=== PATIENT | female | born 1960 | race Caucasian/White ===

== ENCOUNTER 2021-05-05 12:06 | Inpatient (IN) ==
[2021-05-05] MEDS ORDERED: ASPIRIN CHEW 324 MG PO STA (12:16)
[2021-05-05] MEDS ORDERED: MIDAZOLAM HCL 1 MG/ML 2ML VIAL ONE ×3 (12:24→14:23)
[2021-05-05] MEDS ORDERED: niCARdipine HCL INJ 2.5 MG/ML 10 ML AMP ONE (12:24)
[2021-05-05] MEDS ORDERED: HEPARIN (PORCINE) 1000 UNIT/ML 10 ML (CATH LAB USE ONLY) ONE ×2 (12:24→13:51)
[2021-05-05] MEDS ORDERED: NITROGLYCERIN/D5W 100MCG/ML 20ML SYR ONE (12:25)
[2021-05-05] MEDS ORDERED: fentaNYL citrate 100 MCG/2 ML VIAL ONE ×2 (12:25→14:23)
--- NOTE | 2021-05-05 12:27 | Emergency Department Note ---
Impression & Plan Acute MS, inferior wall, COOPER (dyspnea on exertion), Abnormal cardiovascular stress test ED Provider Note NAME: ARANZA TURCIOS AGE: 60 SEX: F : 1960 ARRIVES VIA: Walk-In INFORMANT: Patient, ED PROVIDER(S): Piotr Roberts DO CHIEF COMPLAINT: shortness of breath HPI: the patient is a 60-year-old female who presented to emergency department for an evaluation of shortness of breath. The patient is a history of diabetes. The patient states that she has been having dyspnea on exertion for the last few months. She was followed by her primary care physician for the symptoms. She was scheduled for a stress test. She presented for the stress test today and had a very abnormal stress test which included ST segment elevation with provocation. She was asymptomatic at the time and at this time complains of no chest pain. Because of the abnormal stress test she was sent to the emergency department for further evaluation. At this time the patient denies having any chest pain. She denies having any nausea or vomiting. She has no abdominal pain. She denies having the lower extremity swelling. She states she did have knee surgery previously and after that was decompensated. She states she did lose some weight and was feeling better. She started getting worse with her symptoms and this is why she was sent for the stress test. She states she has noticed that her blood sugar has been elevated over the last few days. ROS: See above HPI for pertinent positives & negatives. A total of 10 systems reviewed and were otherwise negative. PAST MEDICAL HISTORY: See Below PAST SURGICAL HISTORY: See Below FAMILY HISTORY: See Below SOCIAL HISTORY: See Below HOME MEDICATIONS: See Below ALLERGIES: See Below VITALS: See Below PHYSICAL EXAMINATION: GENERAL: Patient is awake alert in no acute distress patient is resting comfortably and showing no signs of anxiety EYES: The conjunctivae are clear. The pupils are round and reactive. EARS, NOSE, MOUTH AND THROAT: The nose is without any evidence of any deformity. NECK: The neck is nontender and supple. RESPIRATORY: Normal respiratory effort is noted there is no evidence of wheezing rhonchi or rales CARDIOVASCULAR: Regular rate and rhythm noted there no murmurs rubs or gallops normal S1 normal S2. GASTROINTESTINAL: The abdomen is soft. Abdomen is nontender. MUSCULOSKELETAL/EXTREMITIES: There is no evidence of gross deformity full range of motion is noted in the hips and shoulders. SKIN: There is no obvious evidence of any rash. There are no petechiae, pallor or cyanosis noted. NEUROLOGIC: Patient is awake alert and oriented x3 MEDICAL DECISION MAKING: the patient is a 60-year-old female who presented to the emergency department for an evaluation of shortness of breath. The patient is a history of diabetes. The patient also has a history of hyperlipidemia. She presented to the emergency department after having a stress test as an outpatient showed significant ST segment abnormalities. The patient was asymptomatic upon arrival. Her EKG did show significant ST segment abnormalities however. The [facility] were aware that she was coming over. Given her EKG findings and the patient's risk factors as well as her abnormal stress test she was felt to be a candidate for cardiac catheterization and possible interventional therapy. The patient was made a heart alert. She was treated with aspirin in the emergency department. The rn patient services was made aware and evaluated at the bedside. The patient was agreeable with this plan. Triage Nursing notes reviewed. Prior medical records reviewed Vital Signs: reviewed and remarkable for elevated blood pressure. Differential diagnosis: Cardiac ischemia, aortic dissection, pulmonary embolism, pneumothorax, pneumonia, pericarditis, myocarditis, esophageal rupture, GERD, cholecystitis, pancreatitis, musculoskeletal, as well as other pathologies. ER treatment provided: See below Diagnostics interpreted by me: ECG: EKG was obtained in the emergency department. My interpretation is sinus bradycardia 59 bpm. There were acute ST segment elevation as noted in the inferior leads with ST segment depression and the high lateral leads consistent with acute inferior wall MS with reciprocal changes. No previous duration was available. Cardiac Monitoring: An order was placed for continuous cardiac monitoring. The monitor shows a rate of 60 bpm with sinus rhythm. Laboratory studies: As stated above and show below. Imaging studies: See below Consultation(s): I discussed this case with Dr. Brewer who was expecting the patient and recommends that we make the patient a heart alert. Past Med/Surg History Medical History HAL (generalized anxiety disorder) Hypertension Insulin dependent diabetes mellitus Mixed hyperlipidemia Surgical History History of right knee joint replacement History of tonsillectomy Social History (Updated 05/05/21 @ 18:30 by Margarita Pagan PA-C) Smoking Status: Former smoker Smoking End Date: 2005; Hx Alcohol Use: Yes Alcohol type: hard liquor Alcohol Intake Frequency: 2-4 x/Month Hx Substance Use: No Preferred Language: Sinhala Communication Ability: Effective Beliefs That Will Affect Care: None Current Living Situation: Family Other Information That Helps Us Care for You: No Feels Safe at Home: Yes Safety Concerns: Feels Safe At This Time Assistive Devices: None Allergies Allergies Allergy/AdvReac Type Severity Reaction Status Date / Time No Known Allergies Allergy Unverified 05/05/21 12:42 Home Meds Home Medications Medication Instructions Recorded Confirmed citalopram 20 mg tablet 20 mg PO DAILY 05/05/21 05/05/21 diclofenac sodium 75 mg 75 mg PO BID 05/05/21 05/05/21 tablet,delayed release empagliflozin 25 mg tablet 25 mg PO DAILY 05/05/21 05/05/21 (Jardiance) ezetimibe 10 mg tablet 10 mg PO DAILY 05/05/21 05/05/21 gabapentin 800 mg tablet 800 mg PO TID 05/05/21 05/05/21 insulin glargine 100 unit/mL (3 28 unit SUBCUT HS 05/05/21 05/05/21 mL) subcutaneous pen (Lantus Solostar U-100 Insulin) lisinopril 40 mg tablet 40 mg PO DAILY 05/05/21 05/05/21 multivitamin 1 tab PO DAILY 05/05/21 05/05/21 semaglutide (Ozempic) 0.5 mg SUBCUT FREGOSO@0900 05/05/21 05/05/21 vitamin B complex 1 tab PO DAILY 05/05/21 05/05/21 Results & Data (ED) Vital Signs Vital Signs - 24 hr 05/05/21 12:08 05/05/21 12:20 05/05/21 12:28 Temperature 36 C L Temperature Source Temporal Artery Scan Pulse Rate 68 68 Pulse Rate [Right Finger] 68 Respiratory Rate 18 20 20 Respiratory Effort / Characteristics Non-Labored Non-Labored Respiratory Depth Normal Normal Blood Pressure 168/82 H Blood Pressure [Right Arm] 158/92 H Blood Pressure Mean 110 Blood Pressure Mean [Right Arm] 114 Pulse Oximetry 98 97 97 Oxygen Delivery Method Room Air Room Air Room Air Sepsis Recent Fever Within 48 Hours No Sepsis New/Unexplained Change in Mental Status No Sepsis Action Taken by Nursing No Action Required Home Medications Current Medication List: was personally reviewed by me Laboratory Data Attestation: I reviewed the patient's lab results. Result diagrams: 05/06/21 03:38 05/06/21 03:38 Lab Results 05/05/21 05/05/21 05/05/21 Range/Units 12:25 12:25 12:26 WBC 9.57 (4.8-10.8) K/uL RBC 3.92 L (4.2-5.4) M/uL Hgb 11.6 L (12.0-16.0) g/dL Hct 35.5 L (37-47) % MCV 90.6 (80-100) fL MCH 29.6 (25-34) pg MCHC 32.7 (32-36) g/dL RDW Std Deviation 42.6 (36.4-46.3) fL RDW Coeff of Navneet 12.9 (11.5-14.5) % Plt Count 382 (130-400) K/uL MPV 9.4 (7.4-10.4) fL Immature Gran % (Auto) 0.4 % Neut % (Auto) 61.4 % Lymph % (Auto) 28.3 % Hooker % (Auto) 4.4 % Eos % (Auto) 4.9 % Baso % (Auto) 0.6 % Neut # (Auto) 5.87 (1.4-6.5) K/uL Lymph # (Auto) 2.71 (1.2-3.4) K/uL Hooker # (Auto) 0.42 (0.11-0.59) K/uL Eos # (Auto) 0.47 (0-0.5) K/uL Baso # (Auto) 0.06 (0-0.2) K/uL Immature Gran # (Auto) 0.04 H (0.00-0.02) K/uL PT (9.0-12.0) Seconds INR (0.9-1.1) APTT (21.0-31.0) Seconds PTT Ratio Sodium (136-145) mmol/L Potassium (3.5-5.1) mmol/L Chloride (98-107) mmol/L Carbon Dioxide (21-32) mmol/L Anion Gap (3-11) BUN (7-18) mg/dl Creatinine (0.6-1.2) mg/dl Est Cr Clr Drug Dosing ml/min Est GFR ( Amer) ml/min Est GFR (Non-Af Amer) ml/min BUN/Creatinine Ratio (10-20) Glucose (70-99) mg/dl Calcium (8.5-10.1) mg/dl Total Bilirubin (0.2-1) mg/dl AST (15-37) U/L ALT (12-78) U/L Alkaline Phosphatase (45-117) U/L Troponin I (0-0.045) ng/ml Total Protein (6.4-8.2) gm/dl Albumin (3.4-5.0) gm/dl Globulin (2.5-4.0) gm/dl Albumin/Globulin Ratio (0.9-2) Lipase (73-393) U/L COVID-19 Eval Order Covid19 at [facility] SARS-CoV-2 (PCR) NEGATIVE (Negative) 05/05/21 05/05/21 Range/Units 12:26 12:26 WBC (4.8-10.8) K/uL RBC (4.2-5.4) M/uL Hgb (12.0-16.0) g/dL Hct (37-47) % MCV (80-100) fL MCH (25-34) pg MCHC (32-36) g/dL RDW Std Deviation (36.4-46.3) fL RDW Coeff of Navneet (11.5-14.5) % Plt Count (130-400) K/uL MPV (7.4-10.4) fL Immature Gran % (Auto) % Neut % (Auto) % Lymph % (Auto) % Hooker % (Auto) % Eos % (Auto) % Baso % (Auto) % Neut # (Auto) (1.4-6.5) K/uL Lymph # (Auto) (1.2-3.4) K/uL Hooker # (Auto) (0.11-0.59) K/uL Eos # (Auto) (0-0.5) K/uL Baso # (Auto) (0-0.2) K/uL Immature Gran # (Auto) (0.00-0.02) K/uL PT 9.6 (9.0-12.0) Seconds INR 0.9 (0.9-1.1) APTT 25.4 (21.0-31.0) Seconds PTT Ratio 1.0 Sodium 140 (136-145) mmol/L Potassium 3.9 (3.5-5.1) mmol/L Chloride 109 H (98-107) mmol/L Carbon Dioxide 25 (21-32) mmol/L Anion Gap 6.0 (3-11) BUN 27 H (7-18) mg/dl Creatinine 1.21 H (0.6-1.2) mg/dl Est Cr Clr Drug Dosing 67.0 ml/min Est GFR ( Amer) 55.5 ml/min Est GFR (Non-Af Amer) 47.9 ml/min BUN/Creatinine Ratio 22.0 H (10-20) Glucose 100 H (70-99) mg/dl Calcium 9.3 (8.5-10.1) mg/dl Total Bilirubin 0.4 (0.2-1) mg/dl AST 14 L (15-37) U/L ALT 20 (12-78) U/L Alkaline Phosphatase 87 (45-117) U/L Troponin I < 0.015 (0-0.045) ng/ml Total Protein 7.1 (6.4-8.2) gm/dl Albumin 3.4 (3.4-5.0) gm/dl Globulin 3.7 (2.5-4.0) gm/dl Albumin/Globulin Ratio 0.9 (0.9-2) Lipase 410 H (73-393) U/L COVID-19 Eval Order SARS-CoV-2 (PCR) (Negative) Administered Medications Aspirin (Aspirin 81 Mg Ectab) 81 mg PO QAM [facility] Stop: 06/05/21 08:59 Last Admin: 05/05/21 18:15 Dose: 81 mg Documented by: [id number] Citalopram Hydrobromide (Citalopram 20 Mg Tab) 20 mg PO DAILY [facility] Stop: 06/05/21 08:59 Last Admin: 05/06/21 08:13 Dose: 20 mg Documented by: [id number] Ezetimibe (Ezetimibe 10 Mg Tablet) 10 mg PO QAM [facility] Stop: 06/05/21 08:59 Last Admin: 05/06/21 08:13 Dose: 10 mg Documented by: [id number] Insulin Aspart (Insulin Aspart 100 Units/Ml 3 Ml Pen) 0 units SC ACHS LIGIA; P rotocol Stop: 06/04/21 20:59 Last Admin: 05/06/21 08:15 Dose: 4 units Documented by: [id number] Cosigned by: [id number] Admin: 05/05/21 20:22 Dose: 1 units Documented by: [id number] Cosigned by: [id number] Insulin Glargine (Insulin Glargine Solostar 100 Units/Ml 3 Ml Pen) 0 units SC HS LIGIA; Protocol Stop: 06/04/21 20:59 Last Admin: 05/05/21 20:21 Dose: 20 units Documented by: [id number] Cosigned by: [id number] Nitroglycerin (Nitroglycerin 2% Ointment 30gm Tube) 0.5 inch EXT Q6H LIGIA Stop: 06/04/21 18:29 Last Admin: 05/06/21 04:59 Dose: Not Given Documented by: [id number] Admin: 05/05/21 23:34 Dose: Not Given Documented by: [id number] Admin: 05/05/21 18:19 Dose: 0.5 inch Documented by: [id number] Rosuvastatin Calcium (Rosuvastatin Calcium 20 Mg Tab) 20 mg PO QAM [facility] Stop: 06/04/21 17:29 Last Admin: 05/06/21 08:13 Dose: 20 mg Documented by: [id number] Admin: 05/05/21 18:16 Dose: 20 mg Documented by: [id number] Discontinued Medications Acetaminophen (Acetaminophen 500 Mg Tab) 1,000 mg PO ONE ONE Stop: 05/05/21 19:36 Last Admin: 05/05/21 19:48 Dose: 1,000 mg Documented by: [id number] Aspirin (Aspirin Chew 324 Mg) 324 mg PO NOW STA Stop: 05/05/21 12:17 Last Admin: 05/05/21 12:25 Dose: 324 mg Documented by: [id number] Eptifibatide (Eptifibatide 2 Mg/Ml 10 Ml Vial (Air Export Agent Use Only)) Confirm Administered Dose 40 mg IV .STK-MED ONE Stop: 05/05/21 15:08 Last Admin: 05/05/21 15:15 Dose: 40 mg Documented by: [id number] Eptifibatide (Eptifibatide 0.75 Mg/Ml 75mg Vial (Air Export Agent Use Only)) Confirm Administered Dose 75 mg .ROUTE .STK-MED ONE Stop: 05/05/21 15:08 Last Admin: 05/05/21 15:15 Dose: 75 mg Documented by: [id number] Eptifibatide (Eptifibatide 2 Mg/Ml 10 Ml Vial (Air Export Agent Use Only)) Confirm Admi nistered Dose 20 mg IV .STK-MED ONE Stop: 05/05/21 15:17 Last Admin: 05/05/21 16:52 Dose: Not Given Documented by: [id number] Fentanyl Citrate (Fentanyl Citrate 100 Mcg/2 Ml Vial) Confirm Administered Dose 100 mcg .ROUTE .STK-MED ONE Stop: 05/05/21 12:26 Last Admin: 05/05/21 15:13 Dose: 100 mcg Documented by: [id number] Fentanyl Citrate (Fentanyl Citrate 100 Mcg/2 Ml Vial) Confirm Administered Dose 100 mcg .ROUTE .STK-MED ONE Stop: 05/05/21 14:24 Last Admin: 05/05/21 15:14 Dose: 50 mcg Documented by: [id number] Heparin Sodium (Porcine) (Heparin (Porcine) 1000 Unit/Ml 10 Ml (Air Export Agent Use Only)) Confirm Administered Dose 10,000 units .ROUTE .STK-MED ONE Stop: 05/05/21 12:25 Last Admin: 05/05/21 15:12 Dose: 10,000 units Documented by: [id number] Heparin Sodium (Porcine) (Heparin (Porcine) 1000 Unit/Ml 10 Ml (Air Export Agent Use Only)) Confirm Administered Dose 10,000 units .ROUTE .STK-MED ONE Stop: 05/05/21 13:52 Last Admin: 05/05/21 15:14 Dose: 9,000 units Documented by: [id number] Heparin Sodium/Sodium Chloride (Heparin In Nss Infusion 1000 Unit/500 Ml (2 U/Ml) Bag) Confirm Administered Dose 3,000 units IV .STK-MED ONE Stop: 05/05/21 12:26 Last Admin: 05/05/21 15:13 Dose: 3,000 units Documented by: [id number] Sodium Chloride (Nss 1000ml) 1,000 mls @ 750 mls/hr IV .Q1H20M LIGIA Stop: 06/04/21 15:59 Last Infusion: 05/05/21 18:12 Dose: 0 mls/hr Documented by: [id number] Admin: 05/05/21 16:59 Dose: 750 mls/hr Documented by: [id number] Eptifibatide (Integrilin) 75 mg in 100 mls @ 0 mls/hr IV .Q0M LIGIA; Protocol Stop: 05/06/21 06:00 Last Infusion: 05/06/21 05:51 Dose: 0 mcg/kg/min, 0 mls/hr Documented by: [id number] Cosigned by: [id number] Admin: 05/06/21 00:15 Dose: 2 mcg/kg/min, 19.3 mls/hr Documented by: [id number] Cosigned by: [id number] Infusion: 05/06/21 00:15 Dose: 2 mcg/kg/min, 19.3 mls/hr Documented by: [id number] Cosigned by: [id number] Admin: 05/05/21 19:18 Dose: 2 mcg/kg/min, 19.3 mls/hr Documented by: [id number] Cosigned by: [id number] Furosemide 20 mg/ Syringe 2 mls @ 4 mls/min IV ONE ONE Stop: 05/05/21 18:16 Last Admin: 05/05/21 18:15 Dose: 4 mls/min Documented by: [id number] Midazolam HCl (Midazolam Hcl 1 Mg/Ml 2ml Vial) Confirm Administered Dose 2 mg .ROUTE .STK-MED ONE Stop: 05/05/21 12:25 Last Admin: 05/05/21 15:13 Dose: 2 mg Documented by: [id number] Midazolam HCl (Midazolam Hcl 1 Mg/Ml 2ml Vial) Confirm Administered Dose 2 mg .ROUTE .STK-MED ONE Stop: 05/05/21 13:41 Last Admin: 05/05/21 15:14 Dose: 2 mg Documented by: [id number] Midazolam HCl (Midazolam Hcl 1 Mg/Ml 2ml Vial) Confirm Administered Dose 2 mg .ROUTE .STK-MED ONE Stop: 05/05/21 14:24 Last Admin: 05/05/21 15:14 Dose: 2 mg Documented by: [id number] Nicardipine HCl (Nicardipine Hcl Inj 2.5 Mg/Ml 10 Ml Amp) Confirm Administered Dose 25 mg .ROUTE .STK-MED ONE Stop: 05/05/21 12:25 Last Admin: 05/05/21 15:13 Dose: 25 mg Documented by: [id number] Nitroglycerin/Dextrose (Nitroglycerin/D5w 100mcg/Ml 20ml Syr) Confirm Administered Dose 2,000 mcg .ROUTE .STK-MED ONE Stop: 05/05/21 12:26 Last Admin: 05/05/21 15:14 Dose: 2,000 mcg Documented by: [id number] Ondansetron HCl (Ondansetron Inj 2 Mg/Ml 2 Ml Vial) 4 mg IV ONE ONE Stop: 05/05/21 19:36 Last Admin: 05/05/21 19:49 Dose: 4 mg Documented by: [id number] Ticagrelor (Ticagrelor 90 Mg Tab) Confirm Administered Dose 180 mg PO .STK-MED ONE Stop: 05/05/21 15:11 Last Admin: 05/05/21 15:15 Dose: 180 mg Documented by: [id number] Imaging Data Radiologist's Impression: Chest X-Ray 05/05/21 12:16 SINGLE VIEW CHEST CLINICAL HISTORY: Atypical chest pain. FINDINGS: An AP, portable, upright chest radiograph is obtained. No prior studies are available for comparison at the time of dictation. The heart is enlarged noting atherosclerotic calcification of the thoracic aorta. The pulmonary vasculature is noncongested. There is mild bibasilar scarring/atelectasis. No airspace consolidation or large pleural effusion is identified. No pneumothorax is seen. The skeletal structures are osteopenic. The bony thorax is grossly intact. IMPRESSION: Cardiomegaly with no acute cardiopulmonary abnormality. ACT 112: Negative or not required by law. Electronically signed by: Deep Jarrett M.D. 05/05/2021 12:41 PM Discharge Plan Visit Data Chief Complaint: Cardiac Assessment Stated Complaint: HEART CATHETERIZATION ED Provider: Piotr Roberts Discharge Problem: Acute MS, inferior wall, COOPER (dyspnea on exertion), Abnormal cardiovascular stress test Patient Disposition: Admitted As Inpatient Discharge Instructions Interventions: ED Discharge Assessment Last Done: 05/05/21 12:40
--- NOTE | 2021-05-05 12:35 | Cardiology Consultation ---
Date of Consultation May 05, 2021 Assessment & Plan (1) Abnormal stress echocardiogram: Patient with new , persistent inferior ST segment elevation over Q waves , compared to prior resting EKG on 03/31/21. Presentation is concerning for multivessel CAD in patient with history of Diabet es. Will proceed with emergent cardiac catheterization via the "Heart Alert" protocol. ASA 81 mg x 4 tablets administered, chewed. Case discussed with Dr Mcdonnell of interventional cardiology. Further recommendations to follow, after procedure. History of Present Illness Reason for Consultation: Abnormal stress test, abnomormal EKG Requesting Physician: Dr Roberts History of Present Illness Branden Angel is a 60 year old female with a history of insulin dependent type II Diabetes and hypertension. She notes a history of dyspnea with exertion of 6-8 months, perhaps with exertional chest tightness. She presented for an outpatient dobutamine stress echo at [facility] today and developed ST elevation in the inferior leads along with stress induced inferior wall motion abnormality with dobutamine infusion. No chest discomfort induced. Baseline resting echocardiogram today revealed mild global hypokinesis, LVEF 45- 50%. She was evaluated by Dr Álvarez in the cardiology clinic and referred to the ED. On arrival , she notes no symptoms. EKG performed in the ED reveals persistent 1.[address] elevation over Q waves in the inferior leads with ST depression in leads I and aVL. Family History: CAD, stents in both parents Social History: Former smoker Accompanied by isabel. Allergies Allergy/AdvReac Type Severity Reaction Status Date / Time No Known Allergies Allergy Unverified 05/05/21 12:42 Patient History Social History Smoking Status: Never smoker Feels Safe at Home: Yes Review of Systems Review of Systems: All systems reviewed & are unremarkable except as noted in HPI & below Physical Exam Physical Exam: Temp Pulse Resp BP Pulse Ox 36 C L 68 20 158/92 H 97 05/05/21 12:08 05/05/21 12:28 05/05/21 12:28 05/05/21 12:28 05/05/21 12:28 Constitutional: WD/WN, vitals as above Respiratory: normal respiratory effort, lungs clear to auscultation Cardiovascular: RRR, no murmur, no edema Gastrointestinal (Abdomen): normal bowel sounds, soft, nontender, no hepatosplenomegaly Neurologic: PERRL, EOMI, accommodation nl, no face palsy, no dysarthria Results & Data ([facility]) Vital Signs (Past 12 Hours) Vital Signs Temp Pulse Pulse Resp BP BP Pulse Ox 05/05/21 12:28 68 20 158/92 H 97 05/05/21 12:20 68 20 97 05/05/21 12:08 36 C L 68 18 168/82 H 98
[2021-05-05 12:39] LABS: Basophils # (auto) 0.06 K/uL (0-0.2); Basophils % (auto) 0.6 %; Eosinophils # (auto) 0.47 K/uL (0-0.5); Eosinophils % (auto) 4.9 %; Hematocrit (blood only) 35.5 % (37-47); Hemoglobin 11.6 g/dL (12.0-16.0); Immature Granulocytes # (auto) 0.04 K/uL (0.00-0.02); Immature Granulocytes % (auto) 0.4 %; Lymphocytes # (auto) 2.71 K/uL (1.2-3.4); Lymphocytes % (auto) 28.3 %; Mean Corpuscular Hemoglobin 29.6 pg (25-34); Mean Corpuscular Hgb Conc 32.7 g/dL (32-36); Mean Corpuscular Volume 90.6 fL (80-100); Mean Platelet Volume 9.4 fL (7.4-10.4); Monocytes # (auto) 0.42 K/uL (0.11-0.59); Monocytes % (auto) 4.4 %; Neutrophils # (auto) 5.87 K/uL (1.4-6.5); Neutrophils % (auto) 61.4 %; Platelet Count 382 K/uL (130-400); RDW Coefficient of Variation 12.9 % (11.5-14.5); RDW Standard Deviation 42.6 fL (36.4-46.3); Red Blood Count 3.92 M/uL (4.2-5.4); White Blood Count 9.57 K/uL (4.8-10.8)
--- NOTE | 2021-05-05 12:43 | XRay Report ---
SINGLE VIEW CHEST CLINICAL HISTORY: Atypical chest pain. FINDINGS: An AP, portable, upright chest radiograph is obtained. No prior studies are available for c omparison at the time of dictation. The heart is enlarged noting atherosclerotic calcification of th e thoracic aorta. The pulmonary vasculature is noncongested. There is mild bibasilar scarring/atelect asis. No airspace consolidation or large pleural effusion is identified. No pneumothorax is seen. The skeletal structures are osteopenic. The bony thorax is grossly intact. IMPRESSION: Cardiomegaly with no acute cardiopulmonary abnormality. ACT 112: Negative or not required by law. Electronically signed by: Deep Jarrett M.D. 05/05/2021 12:41 PM
--- NOTE | 2021-05-05 12:52 | Pre Anesthesia Assessment ---
Date of Service May 05, 2021 Pre Sedation Assessment Vital Signs Temp Pulse Pulse Resp BP BP Pulse Ox 05/05/21 12:28 68 20 158/92 H 97 05/05/21 12:20 68 20 97 05/05/21 12:08 96.8 F L 68 18 168/82 H 98 Cardiovascular RRR, no murmur, no edema Respiratory normal respiratory effort, lungs clear to auscultation Pre-Sedation Airway Assessment Smoking Status: Former smoker Hx Sleep Apnea: No Hx Difficult Intubation: No Short, Thick Neck: No Thyromental Distance: > or= 3.5 Finger Breadths Oral Cavity: + WNL Mallampati Class: III ASA: ASA4 Procedure Planning Contraindications for Sedation: none Current Medications Reviewed: Yes Notes The planned sedation has been discussed with the patient. Informed Consent was obtained. I have identified the patient, determined the appropriateness of sedation and have assessed the patient immediately prior to the procedure. All medicine(s) and interventions are by my order.
[2021-05-05 12:54] LABS: Alanine Aminotransferase 20 U/L (12-78); Albumin Level 3.4 gm/dl (3.4-5.0); Aspartate Aminotransferase 14 U/L (15-37); Blood Urea Nitrogen 27 mg/dl (7-18); Calcium 9.3 mg/dl (8.5-10.1); Carbon Dioxide 25 mmol/L (21-32); Chloride 109 mmol/L (98-107); Est GFR (African American) 55.5 ml/min; Est GFR (Non-African American) 47.9 ml/min; Glucose 100 mg/dl (70-99); Lipase 410 U/L (73-393); Potassium 3.9 mmol/L (3.5-5.1); Sodium 140 mmol/L (136-145)
[2021-05-05 12:56] LABS: INR 0.9 (0.9-1.1); Partial Thromboplastin Time 25.4 Seconds (21.0-31.0); Prothrombin Time 9.6 Seconds (9.0-12.0)
[2021-05-05 12:59] LABS: Albumin Globulin Ratio 0.9 (0.9-2); Alkaline Phosphatase 87 U/L (45-117); Bilirubin,Total 0.4 mg/dl (0.2-1); Globulin 3.7 gm/dl (2.5-4.0); Total Protein 7.1 gm/dl (6.4-8.2); Troponin I < 0.015 ng/ml (0-0.045)
[2021-05-05] MEDS ORDERED: EPTIFIBATIDE 2 MG/ML 10 ML VIAL (CATH LAB USE ONLY) IV ONE ×2 (15:07→15:16)
[2021-05-05] MEDS ORDERED: EPTIFIBATIDE 0.75 MG/ML 75MG VIAL (CATH LAB USE ONLY) ONE (15:07)
[2021-05-05] MEDS ORDERED: TICAGRELOR 90 MG TAB PO ONE (15:10)
[2021-05-05] MEDS ORDERED: EPTIFIBATIDE BOLUS/DRIP IV STA (15:52)
[2021-05-05] MEDS ORDERED: NITROGLYCERIN SL 0.4 MG/TAB TAB SL PRN (15:52)
--- NOTE | 2021-05-05 15:58 | Post Anesthesia Assessment ---
Date of Service May 05, 2021 Post Sedation Assessment Vital Signs Temp Pulse Pulse Resp BP BP Pulse Ox 05/05/21 12:28 68 20 158/92 H 97 05/05/21 12:20 68 20 97 05/05/21 12:08 96.8 F L 68 18 168/82 H 98 Recovery Score Activity: Moves 4 extremities Respiration: Deep Breath/Cough Circulation: +/-20% PreAnes Value Consciousness: Fully Awake Discharge Sedation Level of Care: Fast Track Phase II Post Sedation Plan On clinical assessment, the patient appears to have tolerated the sedation without complications. Patient is recovering as anticipated. Patient will continue to be monitored by nursing and may be discharged when sedation discharge criteria are met per below protocol. Upon Completions of procedure up to 15 minutes continue every 5 minute vital signs and the P.A.R. score; then discharge to a Phase I or Fast Track to Phase II per the following guidelines: * Discharge Patient to appropriate Phase II area if PAR is 8 or greater or return to pre- procedure baseline. The post - procedure orders will be as directed. * If PAR score is less than 8 or not return to pre-procedure baseline then patient will follow Phase I monitoring till PAR is reached for Phase II. The Phase I may be done in procedure room or may call to secure a Phase I area. * If naloxone or flumazenil are used for reversal, hold in Phase I for continued monitoring from when last reversal dose was given for a minimum of 60 minutes or longer pending the nurse and/or physician discretion of patient condition before discharge to Phase II. Please call the Sedation Physician to re-evaluate and complete post-note for discharge to Phase II area. Do NOT discharge from procedure sedation or Phase 1 until post- sedation evaluation note is complete by procedure /sedation MD Sedation Discharge Instructions to be given to the patient at discharge to home.
--- NOTE | 2021-05-05 16:01 | Post Operative Brief Note ---
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 Severe diffuse small apical LAD D1 small severe diffuse disease. Successful PCI of mid RCA with BUFFY Successful PCI of ostial R-PDA with BUFFY Successful PCI of R-PLB with BUFFY Drains Other Anesthesia Type RN Sedation Complications none Disposition Accompanied Patient To Recovery: No Disposition: Surgical ICU Overlapping Procedure I was present for: the critical portions of procedure. I was immediately available: during the entire case. Back up surgeon: was not required during procedure.
--- NOTE | 2021-05-05 16:27 | History & Physical Report ---
Date of Service May 05, 2021 Assessment & Plan (1) Abnormal stress echocardiogram: Plan: This is a 60yo F with a PMH of DM II, dyslipidemia, HTN, CKD III, HAL and other medical problems listed below who presents as a heart alert after abnormal outpatient dobutamine stress test at [facility] earlier today. Developed ST elevation in the inferior leads during dobutamine stress test Referred to ED and EKG showed persistent 1.[address] elevation over Q waves in the inferior leads with ST depression in leads I and aVL Underwent cardiac catheterization by Dr. Mcdonnell with successful PCI of mid RCA with BUFFY, ostial R- PDA with BUFFY and R-PLB with BUFFY Mgmt per cardiology - continue Integrelin. Starting aspirin, low statin, imdur, continue vega inhibitor Updated by Dr. Brewer that patient later developed post procedure SOB Repeat EKG performed after arrival from laboratory clerk reveals persistent ST elevation, relatively unchanged compared to pre cath IV fluids dc'd, given 20mg IV lasix, topical ntg Critical care service updated Trend troponin, EKG in AM (2) Insulin dependent diabetes mellitus: Plan: A1c 6.9 earlier this month Hold home agents SSI while in-patient BSG AC HS (3) Hypertension: Plan: Continue lisinopril (4) HAL (generalized anxiety disorder): Plan: Continue SSRI (5) Mixed hyperlipidemia: Plan: Not on statin due to myalgias in the past. Continue Zetia Patient seen in collaboration with Dr. Rockwell. Please see addendum. Admission and Anticipated Discharge Date Admission Date: May 05, 2021 History of Present Illness Chief Complaint: s/p cath Primary Care Provider: Sonido Bowles MD This is a 60yo F with a PMH of DM II, dyslipidemia, HTN, CKD III, HAL and other medical problems listed below who presents as a heart alert after abnormal outpatient dobutamine stress test at [facility] earlier today. Had been experiencing intermittent dyspnea on exertion for the past 6 months. During stress test, patient developed ST elevation in the inferior leads. No chest discomfort. TTE today revealed mild global hypokinesis, LVEF 45-50%. Patient was referred to ED and EKG showed persistent 1.[address] elevation over Q waves in the inferior leads with ST depression in leads I and aVL. Underwent cardiac catheterization by Dr. Mcdonnell with successful PCI of mid RCA with BUFFY, ostial R- PDA with BUFFY and R-PLB with BUFFY. History of smoking, quit in 2018. Seen and examined in 103-1. Patient feeling well post-cath. No CP or SOB. Tolerating dinner without issue. No fever, chills, lightheadedness, palpitations, nausea, vomiting, abdominal pain, dysuria, diarrhea or constipation. Allergies Allergy/AdvReac Type Severity Reaction Status Date / Time No Known Allergies Allergy Unverified 05/05/21 12:42 Home Medications Medication Instructions Recorded Confirmed Type citalopram 20 mg tablet 20 mg PO DAILY 05/05/21 05/05/21 History diclofenac sodium 75 mg 75 mg PO BID 05/05/21 05/05/21 History tablet,delayed release empagliflozin 25 mg tablet 25 mg PO DAILY 05/05/21 05/05/21 History (Jardiance) ezetimibe 10 mg tablet 10 mg PO DAILY 05/05/21 05/05/21 History gabapentin 800 mg tablet 800 mg PO TID 05/05/21 05/05/21 History insulin glargine 100 unit/mL (3 28 unit SUBCUT HS 05/05/21 05/05/21 History mL) subcutaneous pen (Lantus Solostar U-100 Insulin) lisinopril 40 mg tablet 40 mg PO DAILY 05/05/21 05/05/21 History multivitamin 1 tab PO DAILY 05/05/21 05/05/21 History semaglutide (Ozempic) 0.5 mg SUBCUT FREGOSO@0900 05/05/21 05/05/21 History vitamin B complex 1 tab PO DAILY 05/05/21 05/05/21 History Past Med/Surg History Medical History HAL (generalized anxiety disorder) Hypertension Insulin dependent diabetes mellitus Mixed hyperlipidemia Surgical History History of right knee joint replacement History of tonsillectomy Social History (Updated 05/05/21 @ 18:30 by Margarita Pagan PA-C) Smoking Status: Former smoker Smoking End Date: 2005; Hx Alcohol Use: Yes Alcohol Intake Frequency: 2-4 x/Month Hx Substance Use: No Feels Safe at Home: Yes Review of Systems Review of Systems: At least ten systems reviewed and negative except as noted in the HPI. Physical Exam Physical Exam: General Appearance: WD/WN, vitals as above, NAD, sitting up in bed, pleasant, conversing easily Head: normocephalic, atraumatic Eyes: normal inspection, PERRL, conjunctivae normal, anicteric sclerae ENT: external ear and nose normal, oropharynx normal Neck: normal visual inspection, trachea midline, no thyromegaly Respiratory: normal respiratory effort, lungs clear to auscultation, no wheeze, rales, rhonchi. No accessory muscle use Cardiovascular: regular rate, rhythm, no murmur, normal peripheral pulses, no BLE edema. Vessels: no JVD Chest: normal inspection of chest Abdomen/GI: normal bowel sounds, soft, nontender, no hepatosplenomegaly Extremities/Musculoskeletal: R wrist guard in place- no bleeding. No cyanosis or clubbing, extremities motor strength 5/5 Neurologic: PERRL, EOMI, accommodation nl, no face palsy, no dysarthria, CN's II-XI intact bilaterally and moves all extremities Psychiatric: A+Ox3, euthymic affect Skin: no rashes, normal color, warm/dry Results & Data Results & Data ([facility]) Vital Signs (Past 12 Hours) Vital Signs Temp Pulse Pulse Resp BP BP Pulse Ox 05/05/21 12:28 68 20 158/92 H 97 05/05/21 12:20 68 20 97 05/05/21 12:08 36 C L 68 18 168/82 H 98 Laboratory Results Short CBC 05/05/21 Range/Units 12:26 WBC 9.57 (4.8-10.8) K/uL Hgb 11.6 L (12.0-16.0) g/dL Hct 35.5 L (37-47) % Plt Count 382 (130-400) K/uL BMP 05/05/21 12:26 Sodium 140 Potassium 3.9 Chloride 109 H Carbon Dioxide 25 BUN 27 H Creatinine 1.21 H Glucose 100 H Calcium 9.3 Cardiac Enzymes 05/05/21 Range/Units 12:26 Troponin I < 0.015 (0-0.045) ng/ml Liver Function 05/05/21 Range/Units 12:26 Total Bilirubin 0.4 (0.2-1) mg/dl AST 14 L (15-37) U/L ALT 20 (12-78) U/L Alkaline Phosphatase 87 (45-117) U/L Albumin 3.4 (3.4-5.0) gm/dl Diagnostic Findings Chest X-Ray 05/05/21 12:16 SINGLE VIEW CHEST CLINICAL HISTORY: Atypical chest pain. FINDINGS: An AP, portable, upright chest radiograph is obtained. No prior studies are available for comparison at the time of dictation. The heart is enlarged noting atherosclerotic calcification of the thoracic aorta. The pulmonary vasculature is noncongested. There is mild bibasilar scarring/atelectasis. No airspace consolidation or large pleural effusion is identified. No pneumothorax is seen. The skeletal structures are osteopenic. The bony thorax is grossly intact. IMPRESSION: Cardiomegaly with no acute cardiopulmonary abnormality. ACT 112: Negative or not required by law. Electronically signed by: Deep Jarrett M.D. 05/05/2021 12:41 PM Code Status & VTE Plan VTE Prophylaxis Plan VTE Prophylaxis will be ordered: Yes Supervising Physician Co-Signing Physician Notes History and physical exam performed by me. History notable for 60yo F w/ h/o HTN, DM2, CKD who has been having exertional dyspnea for months and had DSE outpatient today during which she developed ischemic changes with abnormal Echo resulting in admission for cardiac catheterization and PCI to RCA, PDA,PLB. Patient seen post procedure. Currently denies any symptoms Physical exam notable for obesity. Lab work notable for Cr of 1.21 Coronary Artery Disease Abnormal stress echo with new inferior DEONDRE S/p PCI with BUFFY to mRCA, ostial R-PDA and R-PLB Currently on integrillin Start ASA, Brilinta, Rosuvastatin per Cardiology recs Hold lisinopril for now Tele monitoring Agree with other plans as detailed by Margarita Pagan PA-C
[2021-05-05] MEDS: SODIUM CHLORIDE 0.9% 1000ML 1,000 ML IV SCH (16:59)
--- NOTE | 2021-05-05 17:26 | Communication Note ---
Date of Service: May 05, [address] Mcdonnell and we reviewed the catheterization films together. In addition to ASA, Brilinta, Integrilin, proceed with rosuvastatin 20 mg daily , Ezetimibe. Hold lisinopril for now given CKD and contrast administration. Add Imdur. Consider Low dose metoprolol tomorrow, hold for HRs in 60s at present. Patient with longstanding history of dyslipidemia, for the most part, outpatient LDL cholesterols have been in the 140s, with measurements of 166 in 2018, and 195 and 220 (although it did not think she was fasting at that time). Most recent measurement in January, was 140 mg/dL. She is on ezetimibe 10 mg daily, with chart history of "statin intolerance ". Not sure which agents and what doses were tried. Future considerations include adding a PCSK9 inhibitor. For now start rosuvastatin, continue ezetimibe.
--- NOTE | 2021-05-05 17:38 | Critical Care Consultation ---
Date of Consultation May 05, 2021 Assessment & Plan (1) Acute AL, inferior wall: Reason Critically Ill: Branden Angel is a 60 year old female w/ IDDM, HTN, HLD not on home statin/asa who presented w/ 6 months of COOPER/fatigue who is status post PCI and DESx3 and requiring care in the ICU. Neuro - [facility] ICU: neg anxiety: continue home regimen neuropathic pain: home gabapentin 800 TID reduced to 200 TID while inpatient Cardiac - CAD Acute inferior wall AL Per cardiology, persistent 1.[address] elevation over Q waves in the inferior leads with ST depression in leads I and aVL. Similar ecg after PCI. No records noted in [facility] system. s/p PCI and BUFFY x3 Cardiology following. Per cardio recs: Integrilin, ASA 81, Brilinta, Crestor, Zetia HTN, HLD See regimen above acute CHF see below Respiratory - dyspnea on exertion Considered CHF exac vs anginal Current presentation may be exacerbation of her chronic symptoms in past 6 months EF 45-50 noted on recent echo; mild global hypokinesis. Home baseline may be lower per cardiology. Patient received IV contrast and some fluids Stopped maintenance IVF and provided 20 mg of IV lasix If more SOB, will provide o2 and consider CPAP GI - DM2 diet Lipase slightly elev 410. RENAL/LYTES - Cr 1.21, baseline unknown. Replace lytes as needed. - No concerns at this time. Voiding. ENDO - IDDM Glycemic pharmacy consult. ICU hyperglycemia protocol No hx of thyroid disease. HEME - Follow CBC ID - Monitor clinically. No current concerns for infection. LINES/IV ACCESS - PIVs intact. DVT PROPHYLAXIS - See antiplatelet therapy above code: full dispo: icu (2) Postsurgical percutaneous transluminal coronary angioplasty (PTCA) status: (3) Hypertension: (4) Mixed hyperlipidemia: (5) Insulin dependent diabetes mellitus: (6) Abnormal stress echocardiogram: (7) HAL (generalized anxiety disorder): (8) COOPER (dyspnea on exertion): Supervising Physician Co-Signing Physician Notes Dr. Brown was the resident-physician during care of patient. I separately evaluate d patient for hawley portions of the history and the exam. I was present during the critical portion of medical decision making, and I discussed the case with the resident. I generally agree with the findings and plan except for any additions/exceptions noted. 60-year-old female past medical history of diabetes type 2, hypertension, dyslipidemia, history of smoking 30 pack years quit 15 years ago was sent to the [facility] from [facility] for abnormal stress echo Patient had ST changes She was taken to the [facility] drug-eluting stents were placed in the RCA Chest prior to the time of examination patient was complaining of shortness of breath and mild chest pain. She was given Nitropaste and a dose of Lasix She already was feeling better She denied any nausea or vomiting She overall feels better compared to when she the hospital Denies any headache or blurry vision Constitutional: No acute distress HEENT: EOMI, PERRLA Respiratory system: Decreased air entry bilaterally, no wheeze, rhonchi, mild crackles bilateral lower lobes CVS: S1-S2 positive, no murmurs or gallops Abdomen: Soft, nontender, nondistended, positive bowel sounds x4, obese Extremities: +2 pulses bilaterally radialis/ dorsalis pedis, no cyanosis, +1 pitting edema Neuro: Awake alert oriented x3 Psych: Normal mood and affect G/U: No Humphries Plan: Continue with dual antiplatelet therapy Monitor EKG and trend troponins BiPAP nightly and as needed shortness of breath Diabetic diet Patient does have CKD continue to monitor creatinine especially given that the patient got contrast today Please note the above document was generated using voice recognition software. It may contain grammatical, syntax or spelling errors.Any formal questions or concerns about the content, text or information contained within the body of this dictation should be directly addressed to the provider for clarification. History of Present Illness Reason for Consultation: STEMI s/p PCI and DESx3 Attending Physician: Faheem Brewer DO History of Present Illness Branden Angel is a 60 y/o female w/ PMHx of anxiety, HTN, HLD, and insulin- dependent DM, who presents w/ 6 months of worsening fatigue and COOPER. She presented to [facility] because she had ST elevations on an outpatient dobutamine stress test. Patient denies any chest pain, palpitations, abdominal pain, nausea/vomiting, or diaphroesis. She did not feel SOB at rest and denies orthopnea. The dyspnea on exertion mostly present w/ activity, but intermittently. She states that she has had negative upper/lower endoscopies as part of the fatigue work up. Patient was brought in as a heart alert and un derwent PCI and BUFFY x3. Denies hx of MONE. Denies snoring at night. Quit smoking 15 years ago. ~30 pack year hx. Not on home inhalers.Occasional etoh 1-2 drinks per weekend day. Parents had AL. Mom in 70s. also had stroke and DM. Dad had CHF. DM in MGF, MGM. She last took her home medications this AM. At time of my interview, patient had some new dyspnea described as unable to take full breath. This started after she started eating dinner. There was relief after lasix 20 and nitro patch. Allergies Allergy/AdvReac Type Severity Reaction Status Date / Time No Known Allergies Allergy Unverified 05/05/21 12:42 Home Medications Medication Instructions Recorded Confirmed Type citalopram 20 mg tablet 20 mg PO DAILY 05/05/21 05/05/21 History diclofenac sodium 75 mg 75 mg PO BID 05/05/21 05/05/21 History tablet,delayed release empagliflozin 25 mg tablet 25 mg PO DAILY 05/05/21 05/05/21 History (Jardiance) ezetimibe 10 mg tablet 10 mg PO DAILY 05/05/21 05/05/21 History gabapentin 800 mg tablet 800 mg PO TID 05/05/21 05/05/21 History insulin glargine 100 unit/mL (3 28 unit SUBCUT HS 05/05/21 05/05/21 History mL) subcutaneous pen (Lantus Solostar U-100 Insulin) lisinopril 40 mg tablet 40 mg PO DAILY 05/05/21 05/05/21 History multivitamin 1 tab PO DAILY 05/05/21 05/05/21 History semaglutide (Ozempic) 0.5 mg SUBCUT FREGOSO@0900 05/05/21 05/05/21 History vitamin B complex 1 tab PO DAILY 05/05/21 05/05/21 History ticagrelor 90 mg tablet (Brilinta) 90 mg PO BID #30 tab 05/06/21 Rx Patient History Medical History HAL (generalized anxiety disorder) Hypertension Insulin dependent diabetes mellitus Mixed hyperlipidemia Surgical History History of right knee joint replacement History of tonsillectomy Social History (Updated 05/05/21 @ 18:30 by Margarita Pagan PA-C) Smoking Status: Former smoker Smoking End Date: 2005; Hx Alcohol Use: Yes Alcohol type: hard liquor Alcohol Intake Frequency: 2-4 x/Month Hx Substance Use: No Preferred Language: Occitan Communication Ability: Effective Beliefs That Will Affect Care: None marital status: Current Living Situation: Family Other Information That Helps Us Care for You: No Feels Safe at Home: Yes Safety Concerns: Feels Safe At This Time Assistive Devices: None Review of Systems Review of Systems: All systems reviewed & are unremarkable except as noted in HPI & below Constitutional: Denies fever, chills. Lost 11 lbs in 6 wks, intentional. Eyes: Denies blurry vision, vision changes ENT: Denies sore throat, sinus pain Cardiovascular: Denies chest pain, palpitations Respiratory: Denies shortness of breath at rest. + COOPER. Gastrointestinal: Denies abdominal pain, nausea, vomiting, constipation, diarrhea Genitourinary: Denies urinary symptoms including dysuria Musculoskeletal: Denies weakness, muscle aches/pain, joint aches/pain Neurological: Denies new headache prior to admission. + diabetic neuropathy. + mild headache currently, after the nitro. Denies dizziness. Physical Exam Physical Exam: General: Grossly A&O. NAD. Cooperative. HEENT: Atraumatic, normocephalic. EOMI Pulm: Good air entry. Faint crackles per attending exam. No respiratory distress. Cardiac: RRR, -mrg. Radial pulse intact on left. Deferred palpation of R pulse because of TR band. 1-2+ BLE. Abdominal: Nontender, nondistended, soft. Integ: TR band and PIVs appropriate. : No humphries. Results & Data Results & Data ([facility]) Vital Signs (Past 12 Hours) Vital Signs Temp Pulse Pulse Resp BP BP Pulse Ox 05/05/21 12:28 68 20 158/92 H 97 05/05/21 12:20 68 20 97 05/05/21 12:08 36 C L 68 18 168/82 H 98 Laboratory Results Cardiac Enzymes 05/05/21 Range/Units 12:26 AST 14 L (15-37) U/L Troponin I < 0.015 (0-0.045) ng/ml Coagulation 05/05/21 Range/Units 12:26 PT 9.6 (9.0-12.0) Seconds APTT 25.4 (21.0-31.0) Seconds CBC 05/05/21 Range/Units 12:26 WBC 9.57 (4.8-10.8) K/uL RBC 3.92 L (4.2-5.4) M/uL Hgb 11.6 L (12.0-16.0) g/dL Hct 35.5 L (37-47) % Plt Count 382 (130-400) K/uL Neut # (Auto) 5.87 (1.4-6.5) K/uL Lymph # (Auto) 2.71 (1.2-3.4) K/uL Wise # (Auto) 0.42 (0.11-0.59) K/uL Eos # (Auto) 0.47 (0-0.5) K/uL Baso # (Auto) 0.06 (0-0.2) K/uL Comprehensive Metabolic Panel 05/05/21 Range/Units 12:26 Sodium 140 (136-145) mmol/L Potassium 3.9 (3.5-5.1) mmol/L Chloride 109 H (98-107) mmol/L Carbon Dioxide 25 (21-32) mmol/L BUN 27 H (7-18) mg/dl Creatinine 1.21 H (0.6-1.2) mg/dl Glucose 100 H (70-99) mg/dl Calcium 9.3 (8.5-10.1) mg/dl AST 14 L (15-37) U/L ALT 20 (12-78) U/L Alkaline Phosphatase 87 (45-117) U/L Total Protein 7.1 (6.4-8.2) gm/dl Albumin 3.4 (3.4-5.0) gm/dl Intake and Output 05/05/21 05/05/21 05/05/21 06:59 14:59 22:59 Intake Total 912.5 / 912.5 Output Total 400 / 400 Balance 512.5 / 512.5 Intake: IV 912.5 / 912.5 Sodium Chloride 0.9% 1000ML 1, 912.5 / 912.5 000 ml @ 750 mls/hr IV .[id number] [facility] Rx#:[id number] Output: Urine 400 / 400 Other: Weight 120.7 kg Weight Measurement Method Chair Scale Patient Weight 05/06/21 06:59 Weight 120.7 kg Diagnostic Findings Chest X-Ray 05/05/21 12:16 SINGLE VIEW CHEST CLINICAL HISTORY: Atypical chest pain. FINDINGS: An AP, portable, upright chest radiograph is obtained. No prior studies are available for comparison at the time of dictation. The heart is enlarged noting atherosclerotic calcification of the thoracic aorta. The pulmonary vasculature is noncongested. There is mild bibasilar scarring/atelectasis. No airspace consolidation or large pleural effusion is identified. No pneumothorax is seen. The skeletal structures are osteopenic. The bony thorax is grossly intact. IMPRESSION: Cardiomegaly with no acute cardiopulmonary abnormality. ACT 112: Negative or not required by law. Electronically signed by: Deep Jarrett M.D. 05/05/2021 12:41 PM cardiac catherization 1. Severe multi-vessel coronary artery disease -Mid RCA 70% ulcerated plaque Subtotal ostial R-PDA occlusion. 95% distal PDA. Faint [id number] collaterals pre-PCI. 90% mid right PLB branch 98% small distal circumflex 40% mid LAD. Diffuse disease small apical LAD up to 95%. Small D2 90% mi 2. Mildly elevated intracardiac filling pressure 3. Successful PCI of mid RCA with single drug-eluting stent (3.5 x 15 mm Hiram). 4. Successful PCI of ostial right PDA with single drug-eluting stent (2.5 x 18 mm [place]) -"kissing balloon" inflation of bifurcation of posterior AV branch/PDA stent Successful PTCA of distal right PDA with 2.0 balloon 5. Successful PCI of distal right PLB with single drug-eluting stent (2.25 x 12 mm [place]). Resident Activity Tracking Resident Involvement: Resident Care Provided Care Provided: [facility]
--- NOTE | 2021-05-05 18:01 | Cardiac Catheterization ---
[facility] Data: Draw Furnace Tender Cardiac Status Clinical evaluation leading to the procedure CAD Presenation: Positive Stress Test Anginal Classification: CCS III Heart Failure: No Cardiogenic Shock within 24 Hours: No Cardiac Arrest within 24 Hours: No Imaging Studies Past 6 Months: Yes Stress Studies Past 6 Months: Yes Stress Echocardiogram: Yes - Positive and Risk/Extent of Ischemia (High) Diagnostic Physicians Name: Luca Mcdonnell MD Status: Urgent Closure Device Percutaneous Entry Location: Radial Closure Device: Radial Band Recommendations: PCI without planned CABG PCI Indication: + Stress Test and Unstable Angina Lesion Segment Name: Ostial right PDA Culprit Artery: Yes Stenosis Prior to Rx (%): 99 Chronic Total Occlusion: Yes IVUS: No FFR: No Pre-Procedure BETITO Flow: 1 Previously Treated Lesion: No Lesion Complexity: High/C Lesion Length (mm): 15 Thrombus Present: No Bifurcation Lesion: Yes Guidewire Across Lesion: Stenosis Post-Procedure (%): 0 Post-Procedure BETITO Flow: 3 Devices(s) Deployed: Yes Yes Lesion #2 Segment Name: Mid RCA Culprit Artery: Yes Stenosis Prior to Rx (%): 70 Chronic Total Occlusion: No IVUS: No FFR: No Pre-Procedure BETITO Flow: 3 Previously Treated Lesion: No Lesion Complexity: Non-High/Non-C Lesion Length (mm): 12 Thrombus Present: Yes Bifurcation Lesion: No Guidewire Across Lesion: Yes Stenosis Post-Procedure (%): 0 Post-Procedure BETITO Flow: 3 Devices(s) Deployed: Yes Intraprocedure Events Significant Disection: No Perforation: No Cardiac Cath Procedure Full Procedure Date May 05, 2021 Pre-Procedure Diagnosis Pre-Procedure Diagnosis: Acute Coronary Syndrome and Positive Stress Test AUC Score AUC Score: 8 Post-Procedure Diagnosis Post-Procedure Diagnosis: Severe CAD, Successful PCI and Elevated Intracardiac Pressures Procedure(s) Performed Procedure(s) Performed: Coronary Angiography, Left Heart Cath, PTCA and Drug Eluting Stent Supervisor [employer] Luca Mcdonnell MD Play Back Operator(s) Utilities Operator Estimated Blood Loss Estimated Blood Loss: 15 Medication(s) Medication(s): Fentanyl, Heparin, Integrilin, Lidocaine 1%, Nicardipine, Nitroglycerin and Versed Medication(s): Ticagrelor Summary of Findings Indication: Exertional dyspnea for months. Grossly abnormal stress test earlier today with inferior ST elevations which persisted on arrival to ED. Patient chest pain-free. Access: 6 Fr right radial artery Catheters: Hayes Findings: LM --normal caliber, no significant disease LAD -medium caliber, 40% mid stenosis at takeoff of small D2. Mid segment luminal irregularities. Distal vessel small with severe diffuse disease up to 95%. Small D2 with 90% mid stenosis. Circumflex -small caliber, 30% ostial, 98% focal in small distal vessel. BETITO I-II flow in small OM 3/left PLB. RCA - Dominant, large caliber vessel, mildly calcified, eccentric possibly ulc erated 70% mid RCA stenosis. Distal vessel partially fills via hcyj-hi-qjysu collaterals LVEDP -22 -- PCI -- Antithrombotic therapy: Heparin, ticagrelor, Integrilin Procedure: RCA cannulated with JR4 along with telescope support catheter Long whisper wire passed across ostial PDA occlusion with a of 1.5 OTW balloon Injection via OTW balloon confirmed distal intraluminal position. Wire exchange d for Zipments wire. Proximal PDA dilated with 1.5 and 2.0 balloons [employer] 50 wire placed into distal right PLB Ostial PDA stented with 2.5 x 18 mm [place] drug-eluting stent Stent postdilated with stent balloon Midportion of distal right PLB dilated with 2.0 balloon. Severe residual stenosis but unable to pass stent past PDA stent. Stenting of PLB initially deferred. Mid RCA stented with 3.5 x 15 mm Hiram drug-eluting stent. Stent postdilated with stent balloon IC vasodilators administered Mid RCA and ostial PDA stents well expanded but noted to have questionable thrombus in proximal aspect of PDA stent with new stenosis involving ostium of right PAV. Also intermittently noted to have occlusion of distal PDA. [employer] 50 wire replaced past PDA stent into PAD and across distal right PLB stenosis Stenosis in distal RCA at takeoff of PDA dilated with 1.5, 2.0 and 2.5 balloons into posterior AV branch Midportion of right PLB stented with 2.25 x 12 mm [place] drug-eluting stent. Postdilated with stent balloon Second pilot supervisor 50 wire placed in PDA across stent into distal vessel Severe distal PDA stenosis/occlusion dilated with 2.0 balloon For residual haziness in PDA stent/stenosis of posterior AV branch ostium kissing balloon inflation done with 2.5 NC in PDA, 2.5 compliant in posterior AV branch. IC vasodilators administered for spasm Started on Integrilin for minimal residual haziness in PDA stent Post procedure BETITO 3 flow throughout. Stents well expanded. Minimal residual stenosis at right posterior AV branch ostium. Mild residual stenosis in distal PDA. Minimal residual haziness in ostial right PDA stent. Arterial Closure: TR band Summary: 1. Severe multi-vessel coronary artery disease -Mid RCA 70% ulcerated plaque Subtotal ostial R-PDA occlusion. 95% distal PDA. Faint gemm-or-wjxxa collaterals pre-PCI. 90% mid right PLB branch 98% small distal circumflex 40% mid LAD. Diffuse disease small apical LAD up to 95%. Small D2 90% mid 2. Mildly elevated intracardiac filling pressure 3. Successful PCI of mid RCA with single drug-eluting stent (3.5 x 15 mm [place]). 4. Successful PCI of ostial right PDA with single drug-eluting stent (2.5 x 18 mm Hiram) -"kissing balloon" inflation of bifurcation of posterior AV branch/PDA stent Successful PTCA of distal right PDA with 2.0 balloon 5. Successful PCI of distal right PLB with single drug-eluting stent (2.25 x 12 mm [place]). Recommendations: To ICU for continued monitoring Continue Integrilin for 12 hours. Loaded with ticagrelor 180 mg in Draw Furnace Tender Continue dual-antiplatelet therapy for at least 1 year Continue statin, and ASCVD risk factor modification Consult cardiac Rehab Plan to medically manage small vessel disease in apical LAD, distal circumflex, D2. Hemodynamics Rest Ao:: 156/60/94 Final Ao: 115/57/79 LV: 156/22 Recommendations Recommendations: PCI without planned CABG Specimens Specimens: None Radiation Exposure (mGy) 8907 (patient counseled on exposure to high amounts of radiation) Contrast (mls) 215 Fluids (cc crystalloids) Fluids (cc crystalloids): 200 Drains Drains: None Anesthesia Moderate 8345-1070 Procedural Complication(s) None Disposition ICU I attest to the content of the Intraoperative Record and any orders documented therein. Any exceptions are noted below. [facility] Card Cath Procedure Codes Cardiac Catheterization Procedure 1: Cardiovascular Cath Procedures: 31470 Coronaries and LHC (+/-LV) Moderate Sedation Procedure 1: Sedation/Anesthesia: 47452 Mod Sedation by the same physician;Init15 Min Child Age 5 & Up Procedure 2: Sedation/Anesthesia: 47429 Mod Sedation by the same physician; Ea [id number] Minutes Stenting Procedure 1: Cardiovascular Stent Procedures: 61389 Perc transluminal revascularization of chronic total occlusion, Procedure 2: Cardiovascular Stent Procedures: 11543 Ea addl branch of a major coronary artery PG Care Time/CCT Total # of Minutes Spent Total Time Spent with Patient: Total time spent is greater than 50% in coordination of care (as documented) at patient's floor/unit and/or counseling p atient:
--- NOTE | 2021-05-05 18:08 | Communication Note ---
Date of Service: May 05, 2021 Patient reassessed in ICU. She is sitting in bedside chair and feels short of breath. Repeat EKG performed after arrival from cath lab technologist reveals persistent ST elevation , relatively unchanged compared to pre cath, perhaps subtle lateral ST elevation now, more prominent than prior. IV fluids have been discontinued. Plan: Furosemide 20 mg IV x 1 now. Topical nitroglycerin. Updated Dr Osorio of critical care by phone.
[2021-05-05] MEDS ORDERED: FUROSEMIDE 20 MG in SYRINGE 0 ML IV ONE (18:15)
[2021-05-05] MEDS: ASPIRIN 81 MG ECTAB PO SCH (18:15)
[2021-05-05] MEDS: ROSUVASTATIN CALCIUM 20 MG TAB PO SCH (18:16)
[2021-05-05] MEDS: NITROGLYCERIN 2% OINTMENT 30GM TUBE EXT SCH ×2 (18:19→23:34)
[2021-05-05] MEDS ORDERED: GLUCOSE 40% GEL 15 GM TUBE PO PRN (18:24)
[2021-05-05] MEDS ORDERED: DEXTROSE 50% 50 ML SYRINGE IV PRN (18:24)
[2021-05-05] MEDS ORDERED: CARBOHYDRATES FOR HYPOGLYCEMIA PO PRN (18:24)
[2021-05-05] MEDS ORDERED: GLUCOSE 10 TABS/TUBE PO PRN (18:24)
[2021-05-05] MEDS ORDERED: PHARMACY GLYCEMIC MGMT CONSULT PRN (18:24)
[2021-05-05] MEDS ORDERED: GLUCAGON FOR INJ 1 MG VIAL SQ PRN (18:24)
[2021-05-05] MEDS: EPTIFIBATIDE 75 MG/100 ML VIAL IV SCH (19:18)
[2021-05-05] MEDS ORDERED: ACETAMINOPHEN 500 MG TAB PO ONE (19:35)
[2021-05-05] MEDS ORDERED: ONDANSETRON INJ 2 MG/ML 2 ML VIAL IV ONE (19:35)
[2021-05-05] MEDS: INSULIN GLARGINE SOLOSTAR 100 UNITS/ML 3 ML PEN SC SCH (20:21)
[2021-05-05] MEDS: INSULIN ASPART 100 UNITS/ML 3 ML PEN SC SCH (20:22)
[2021-05-06] MEDS: EPTIFIBATIDE 75 MG/100 ML VIAL IV SCH (00:15)
[2021-05-06 04:23] LABS: Basophils # (auto) 0.06 K/uL (0-0.2); Basophils % (auto) 0.5 %; Eosinophils % (auto) 2.7 %; Hematocrit (blood only) 34.4 % (37-47); Hemoglobin 11.4 g/dL (12.0-16.0); Immature Granulocytes # (auto) 0.03 K/uL (0.00-0.02); Immature Granulocytes % (auto) 0.3 %; Lymphocytes # (auto) 1.88 K/uL (1.2-3.4); Lymphocytes % (auto) 17.2 %; Mean Corpuscular Hemoglobin 29.8 pg (25-34); Mean Corpuscular Hgb Conc 33.1 g/dL (32-36); Mean Corpuscular Volume 90.1 fL (80-100); Mean Platelet Volume 9.8 fL (7.4-10.4); Monocytes # (auto) 0.69 K/uL (0.11-0.59); Monocytes % (auto) 6.3 %; Neutrophils # (auto) 7.98 K/uL (1.4-6.5); Platelet Count 356 K/uL (130-400); RDW Coefficient of Variation 12.7 % (11.5-14.5); RDW Standard Deviation 41.7 fL (36.4-46.3); Red Blood Count 3.82 M/uL (4.2-5.4); White Blood Count 10.94 K/uL (4.8-10.8)
[2021-05-06 04:59] LABS: Albumin Level 3.1 gm/dl (3.4-5.0); BUN Creatinine Ratio 20.8 (10-20); Calcium 8.6 mg/dl (8.5-10.1); Creatinine Clr Calc Pharmacy 61.9 ml/min; Est GFR (African American) 50.4 ml/min; Est GFR (Non-African American) 43.5 ml/min; Magnesium 1.9 mg/dl (1.8-2.4)
[2021-05-06] MEDS: NITROGLYCERIN 2% OINTMENT 30GM TUBE EXT SCH (04:59)
[2021-05-06 05:29] LABS: Albumin Globulin Ratio 0.8 (0.9-2); Bilirubin,Total 0.5 mg/dl (0.2-1); Globulin 3.7 gm/dl (2.5-4.0); Phosphorus 3.7 mg/dl (2.5-4.9); Total Protein 6.8 gm/dl (6.4-8.2); Troponin I 3.09 ng/ml (0-0.045)
--- NOTE | 2021-05-06 07:10 | Critical Care Progress Note ---
Date of Service May 06, 2021 Assessment & Plan (1) Acute VA, inferior wall: Plan: Reason Critically Ill: Branden Angel is a 60 year old female w/ IDDM, HTN, HLD not on home statin/asa who presented w/ 6 months of COOPER/fatigue who is status post PCI and DESx3 and requiring care in the ICU. Neuro - [facility] ICU: neg anxiety: continue home regimen neuropathic pain: continue home regimen gabapentin 800 TID Cardiac - CAD Acute inferior wall VA Per cardiology, persistent 1.[address] elevation over Q waves in the inferior leads with ST depression in leads I and aVL. Similar ecg after PCI. No records noted in [facility] system. s/p PCI and BUFFY x3 (mid RCA, ostial right PDA, distal right PLB). Small vessel disease in apical LAD, distal circumflex, D2 will be medically managed. Cardiology following. Per cardio recs: ASA 81, metoprolol 12.5 PO qAM, Imdur, Brilinta, Crestor, Zetia. Patient finished Integrilin AM. HTN, HLD See regimen above Home lisinopril held because of PRADEEP, w/ plans to restart 10/2 acute CHF see below Respiratory - dyspnea on exertion Considered CHF exac vs anginal Current presentation may be exacerbation of her chronic symptoms in past 6 months EF 45-50 noted on recent echo; mild global hypokinesis. Home baseline may be lower per cardiology. Patient received IV contrast and some fluids Stopped maintenance IVF and provided 20 mg of IV lasix Good improvement after this. No pulmonary vasc congestion on cxr. Defer additional lasix at this time. GI - DM2 diet Lipase slightly elev 410. RENAL/LYTES - Slight bump in Cr, 1.21->1.31, baseline unknown. Replace lytes as needed. - No concerns at this time. Voiding. Cumulative 1.7L in 1.2L out. ENDO - IDDM Glycemic pharmacy consult. ICU hyperglycemia protocol No hx of thyroid disease. HEME - Follow CBC ID - Monitor clinically. No current concerns for infection. Lines inspected. Slight leukocytosis noted today. LINES/IV ACCESS - PIVs intact. DVT PROPHYLAXIS - SCDs. code: full dispo: stable for downgrade from ICU (2) Postsurgical percutaneous transluminal coronary angioplasty (PTCA) status: (3) Hypertension: (4) Mixed hyperlipidemia: (5) Insulin dependent diabetes mellitus: (6) HAL (generalized anxiety disorder): Admission and Anticipated Discharge Date Admission Date: May 05, 2021 Supervising Physician Co-Signing Physician Notes Dr. Brown was the resident-physician during care of patient. I separately evaluated patient for hawley portions of the history and the exam. I was present during the critical portion of medical decision making, and I discussed the case with the resident. I generally agree with the findings and plan except for any additions/exceptions noted. Patient seen and examined at bedside. No acute distress, no adverse events overnight Patient overall is feeling better. Denies any chest pain, slept well. No shortness of breath Just had breakfast. No nausea or vomiting. Constitutional: No acute distress HEENT: EOMI, PERRLA Respiratory system: Decreased air entry bilaterally, no wheeze, rhonchi, minimal crackles bilateral lower lobes CVS: S1-S2 positive, no murmurs or gallops Abdomen: Soft, nontender, nondistended, positive bowel sounds x4, obese Extremities: +2 pulses bilaterally radialis/ dorsalis pedis, no cyanosis, +1 pitting edema Neuro: Awake alert oriented x3 Psych: Normal mood and affect G/U: No Evans Plan: In/out: Positive 298 Chest x-ray from today does not show any significant change compared to yesterday Patient is moving around no need for heparin Start the patient on PPI Stable to be downgraded to medical floor Please note the above document was generated using voice recognition software. It may contain grammatical, syntax or spelling errors.Any formal questions or concerns about the content, text or information contained within the body of this dictation should be directly addressed to the provider for clarification. Subjective Patient is feeling well. Her headache last night resolved after discontinuation of the nitro patch. Her dyspnea has resolved. She ate breakfast today and denies any complaints. Integrelin off at 6AM. Review of Systems Review of Systems: All systems reviewed & are unremarkable except as noted in HPI & below Constitutional: Denies fever, chills Cardiovascular: Denies chest pain, palpitations Respiratory: Denies shortness of breath Gastrointestinal: Denies abdominal pain, nausea, vomiting, constipation, diarrhea Genitourinary: Denies urinary symptoms including dysuria Musculoskeletal: Denies weakness, muscle aches/pain, joint aches/pain Neurological: Denies headache, numbness, tingling, focal weakness Physical Exam Physical Exam: General: Grossly A&O. NAD. Cooperative. Obese habitus. HEENT: Atraumatic, normocephalic. EOMI Pulm: CTAB. -wheezes, -rales, -rhonchi. No respiratory distress. Cardiac: RRR, -mrg. Radial pulses intact and symmetrical. Trace BLE. Abdominal: Nontender, nondistended, soft. Integ: L PIV. R TR band removed. Results & Data Results & Data ([facility]) Vital Signs (Past 12 Hours) Vital Signs HR in mid 50s or highter. Saturating well on room air. normotensive. had elevations to 160s systolic overnight. Temp Pulse Resp BP Pulse Ox 05/06/21 06:00 56 L 21 124/68 96 05/06/21 04:30 36.8 C 57 L 13 94 05/06/21 03:28 57 L 21 115/51 L 95 05/06/21 02:28 57 L 18 139/61 94 05/06/21 01:28 62 20 121/52 L 94 05/06/21 00:28 36.8 C 55 L 17 126/56 L 95 05/05/21 23:28 66 18 148/65 H 91 05/05/21 22:28 58 L 13 141/83 H 96 05/05/21 21:28 53 L 12 153/71 H 96 05/05/21 20:27 72 17 159/68 H 99 05/05/21 19:28 71 17 154/77 H 96 Laboratory Results wbc 9.57->10.94. Hb stable 11.4. cr 1.21->1.31. trop 1.2->3.09. ecg stable overnight. Cardiac Enzymes 05/05/21 05/05/21 05/06/21 Range/Units 12:26 21:50 03:38 AST 14 L 31 (15-37) U/L Troponin I < 0.015 1.200 H* 3.090 H* (0-0.045) ng/ml Coagulation 05/05/21 Range/Units 12:26 PT 9.6 (9.0-12.0) Seconds APTT 25.4 (21.0-31.0) Seconds CBC 05/05/21 05/06/21 Range/Units 12:26 03:38 WBC 9.57 10.94 H (4.8-10.8) K/uL RBC 3.92 L 3.82 L (4.2-5.4) M/uL Hgb 11.6 L 11.4 L (12.0-16.0) g/dL Hct 35.5 L 34.4 L (37-47) % Plt Count 382 356 (130-400) K/uL Neut # (Auto) 5.87 7.98 H (1.4-6.5) K/uL Lymph # (Auto) 2.71 1.88 (1.2-3.4) K/uL [place] # (Auto) 0.42 0.69 H (0.11-0.59) K/uL Eos # (Auto) 0.47 0.30 (0-0.5) K/uL Baso # (Auto) 0.06 0.06 (0-0.2) K/uL Comprehensive Metabolic Panel 05/05/21 05/06/21 Range/Units 12:26 03:38 Sodium 140 137 (136-145) mmol/L Potassium 3.9 4.0 (3.5-5.1) mmol/L Chloride 109 H 108 H (98-107) mmol/L Carbon Dioxide 25 22 (21-32) mmol/L BUN 27 H 27 H (7-18) mg/dl Creatinine 1.21 H 1.31 H (0.6-1.2) mg/dl Glucose 100 H 110 H (70-99) mg/dl Calcium 9.3 8.6 (8.5-10.1) mg/dl AST 14 L 31 (15-37) U/L ALT 20 19 (12-78) U/L Alkaline Phosphatase 87 81 (45-117) U/L Total Protein 7.1 6.8 (6.4-8.2) gm/dl Albumin 3.4 3.1 L (3.4-5.0) gm/dl Intake and Output 05/05/21 05/06/21 05/06/21 22:59 06:59 14:59 Intake Total 1152.5 / 1498.035 345.535 / 1498.035 Output Total 1200 / 1200 Balance -47.5 / 298.035 345.535 / 298.035 Intake: IV 912.5 / 1108.035 195.535 / 1108.035 Eptifibatide 75 mg In 100 ml @ 195.535 / 195.535 Per Protocol IV .Q0M [facility] Rx#: [id number] Sodium Chloride 0.9% 1000ML 1, 912.5 / 912.5 000 ml @ 750 mls/hr IV .Q1H20M [facility] Rx#:[id number] Oral 240 / 390 150 / 390 Output: Urine 1200 / 1200 Other: # Unmeasured Voids 1 Weight 120.7 kg 118.4 kg Weight Measurement Method Built in [facility] Built in [facility] Diagnostic Findings Chest X-Ray 05/05/21 12:16 SINGLE VIEW CHEST CLINICAL HISTORY: Atypical chest pain. FINDINGS: An AP, portable, upright chest radiograph is obtained. No prior studies are available for comparison at the time of dictation. The heart is enlarged noting atherosclerotic calcification of the thoracic aorta. The pulmonary vasculature is noncongested. There is mild bibasilar scarring/atelectasis. No airspace consolidation or large pleural effusion is identified. No pneumothorax is seen. The skeletal structures are osteopenic. The bony thorax is grossly intact. IMPRESSION: Cardiomegaly with no acute cardiopulmonary abnormality. ACT 112: Negative or not required by law. Electronically signed by: Deep Jarrett M.D. 05/05/2021 12:41 PM Chest X-Ray 05/06/21 08:25 XR chest 1V portable HISTORY: covid pneumonia COMPARISON: Chest 05/05/2021. FINDINGS: No pneumothorax. No pleural effusions. There are low lung volumes. The heart remains mildly enlarged. Stable linear scarlike density at the left lung base. Mild chronic interstitial thickening is also unchanged. No new focal lung consolidations. No evidence for pulmonary edema. IMPRESSION: No significant change compared to the prior study. No acute process. ACT 112: Negative or not required by law. Electronically signed by: Willi Zimmer M.D. 05/06/2021 9:18 AM Resident Activity Tracking Resident Involvement: Resident Care Provided Care Provided: Adult Hospital Medicine
[2021-05-06] MEDS ORDERED: FLUARIX QUADRIVALENT 0.5 ML SYR IM ONE (08:00)
[2021-05-06] MEDS ORDERED: PNEUMOCOCCAL POLYSACCHARIDES 25 MCG/0.5 ML VIAL/SYR IM ONE (08:00)
[2021-05-06] MEDS: CITALOPRAM 20 MG TAB PO SCH (08:13)
[2021-05-06] MEDS: ROSUVASTATIN CALCIUM 20 MG TAB PO SCH (08:13)
[2021-05-06] MEDS: EZETIMIBE 10 MG TABLET PO SCH (08:13)
[2021-05-06] MEDS: INSULIN ASPART 100 UNITS/ML 3 ML PEN SC SCH ×4 (08:15→20:13)
[2021-05-06] MEDS: TICAGRELOR 90 MG TAB PO SCH ×2 (08:39→20:12)
[2021-05-06] MEDS: GABAPENTIN 800 MG TAB PO SCH ×3 (08:43→20:12)
[2021-05-06] MEDS ORDERED: ISOSORBIDE MONO EXTENDED REL 30 MG TABCR PO ONE (08:54)
[2021-05-06] MEDS ORDERED: GABAPENTIN 100 MG CAP PO SCH (09:00)
[2021-05-06] MEDS ORDERED: GABAPENTIN 800 MG TAB PO SCH (09:00)
[2021-05-06] MEDS ORDERED: lisinopril 20 MG TAB PO SCH (09:00)
[2021-05-06] MEDS ORDERED: ISOSORBIDE MONO EXTENDED REL 30 MG TABCR PO SCH (09:00)
--- NOTE | 2021-05-06 09:00 | Cardiology Progress Note ---
Date of Service May 06, 2021 Assessment & Plan (1) Acute NV, inferior wall: (2) Hypertension: (3) Mixed hyperlipidemia: (4) Acute systolic heart failure: (5) Ischemic cardiomyopathy: Plan: (1) Acute inferior wall STEMI: -Anginal symptoms have resolved. -EKG 05/06/21, with ongoing residual inferior ST elevation over Q waves, T wave inversions in I and aVL- stable. -multivessel CAD found on cardiac catheterization including culprit RCA disease with a calcified, ulcerated mid RCA stenosis of 70%, distal vessel partially filling via left to right collaterals, with subtotal ostial R-PDA occlusion, 95% distal PDA, 90% mid right PLB branch. -Successful PCI of mid RCA with single drug-eluting stent (3.5 x 15 mm Hiram). -Successful PCI of ostial right PDA with single drug-eluting stent (2.5 x 18 mm Hiram) -"kissing balloon" inflation of bifurcation of posterior AV branch/PDA stent Successful PTCA of distal right PDA with 2.0 balloon Plan to medically manage small vessel disease in apical LAD, distal circumflex, D2. Completed 12 hour course of Integrillin 05/06/21 at 6 am. Continue ASA 81 mg, Brilinta. Add metoprolol succinate Rosuvastatin Ezetimibe Imdur (2) Hypertension: Metoprolol, Imdur Resume [employer] lisinopril 10/2 if renal function stable. (3) Mixed hyperlipidemia: -Historical LDL 140s to 190s. Intolerant of multiple past statin treatments. Proceed with Rosuvastatin , plus [employer] Ezetimibe. May need MTM referral as outpatient for consideration of PCSK9 agent. (4) Acute systolic heart failure: Resting LVEF on baseline echo , 05/05 as outpatient ~35-40% per personal review. Volume status stable this am, having received furosemide 20 mg x 1 post cath. Mildly elevated filling pressures on cardiac catheterization. (5) Ischemic cardiomyopathy: Toprol, Imdur for residual small vessel disease. Resume lisinopril 10/2 if renal function is stable. Consider DC on lasix 20 mg. Admission and Anticipated Discharge Date Admission Date: May 05, 2021 Subjective Patient seen in follow up. She is eating her am meal. Notes feeling "great". Better than she did after stress test and after cardiac catheterzation. 1200ml of urine output noted after 20 mg of IV furosemide last evening. Denies chest pain. Telemetry reveals SR in the 70s with occasional PVCs . Review of Systems Review of Systems: All systems reviewed & are unremarkable except as noted in HPI & below Physical Exam Physical Exam: Temp Pulse Resp BP Pulse Ox 36.8 C 56 L 21 124/68 96 05/06/21 04:30 05/06/21 06:00 05/06/21 06:00 05/06/21 06:00 05/06/21 06:00 Constitutional: WD/WN, vitals as above Respiratory: normal respiratory effort, lungs clear to auscultation Cardiovascular: RRR, no murmur, no edema Right radial access site, clean , dry, intact, mild ecchymosis , no hematoma Gastrointestinal (Abdomen): normal bowel sounds, soft, nontender, no hepatosplenomegaly Neurologic: PERRL, EOMI, accommodation nl, no face palsy, no dysarthria Results & Data ([facility]) Vital Signs (Past 12 Hours) Vital Signs Temp Pulse Resp BP Pulse Ox 05/06/21 06:00 56 L 21 124/68 96 05/06/21 04:30 36.8 C 57 L 13 94 05/06/21 03:28 57 L 21 115/51 L 95 05/06/21 02:28 57 L 18 139/61 94 05/06/21 01:28 62 20 121/52 L 94 05/06/21 00:28 36.8 C 55 L 17 126/56 L 95 05/05/21 23:28 66 18 148/65 H 91 05/05/21 22:28 58 L 13 141/83 H 96 05/05/21 21:28 53 L 12 153/71 H 96 Laboratory Results Cardiac Enzymes 05/05/21 05/05/21 05/06/21 Range/Units 12:26 21:50 03:38 AST 14 L 31 (15-37) U/L Troponin I < 0.015 1.200 H* 3.090 H* (0-0.045) ng/ml Coagulation 05/05/21 Range/Units 12:26 PT 9.6 (9.0-12.0) Seconds APTT 25.4 (21.0-31.0) Seconds CBC 05/05/21 05/06/21 Range/Units 12:26 03:38 WBC 9.57 10.94 H (4.8-10.8) K/uL RBC 3.92 L 3.82 L (4.2-5.4) M/uL Hgb 11.6 L 11.4 L (12.0-16.0) g/dL Hct 35.5 L 34.4 L (37-47) % Plt Count 382 356 (130-400) K/uL Neut # (Auto) 5.87 7.98 H (1.4-6.5) K/uL Lymph # (Auto) 2.71 1.88 (1.2-3.4) K/uL [place] # (Auto) 0.42 0.69 H (0.11-0.59) K/uL Eos # (Auto) 0.47 0.30 (0-0.5) K/uL Baso # (Auto) 0.06 0.06 (0-0.2) K/uL Comprehensive Metabolic Panel 05/05/21 05/06/21 Range/Units 12:26 03:38 Sodium 140 137 (136-145) mmol/L Potassium 3.9 4.0 (3.5-5.1) mmol/L Chloride 109 H 108 H (98-107) mmol/L Carbon Dioxide 25 22 (21-32) mmol/L BUN 27 H 27 H (7-18) mg/dl Creatinine 1.21 H 1.31 H (0.6-1.2) mg/dl Glucose 100 H 110 H (70-99) mg/dl Calcium 9.3 8.6 (8.5-10.1) mg/dl AST 14 L 31 (15-37) U/L ALT 20 19 (12-78) U/L Alkaline Phosphatase 87 81 (45-117) U/L Total Protein 7.1 6.8 (6.4-8.2) gm/dl Albumin 3.4 3.1 L (3.4-5.0) gm/dl Intake and Output 05/05/21 05/06/21 05/06/21 22:59 06:59 14:59 Intake Total 1152.5 / 1498.035 345.535 / 1498.035 Output Total 1200 / 1200 Balance -47.5 / 298.035 345.535 / 298.035 Intake: IV 912.5 / 1108.035 195.535 / 1108.035 Eptifibatide 75 mg In 100 ml @ 195.535 / 195.535 Per Protocol IV .Q0M [facility] Rx#: [id number] Sodium Chloride 0.9% 1000ML 1, 912.5 / 912.5 000 ml @ 750 mls/hr IV .Q1H20M [facility] Rx#:[id number] Oral 240 / 390 150 / 390 Output: Urine 1200 / 1200 Other: # Unmeasured Voids 1 Weight 120.7 kg 118.4 kg Weight Measurement Method Built in [facility] Built in [facility]
--- NOTE | 2021-05-06 09:19 | XRay Report ---
XR chest 1V portable HISTORY: covid pneumonia COMPARISON: Chest 05/05/2021. FINDINGS: No pneumothorax. No pleural effusions. There are low lung volumes. The heart remains mildly enlarged. Stable linear scarlike density at the left lung base. Mild chronic interstitial thickening is also unchanged. No new focal lung consolidations. No evidence for pulmonary edema. IMPRESSION: No significant change compared to the prior study. No acute process. ACT 112: Negative or not required by law. Electronically signed by: Willi Zimmer M.D. 05/06/2021 9:18 AM
[2021-05-06] MEDS: METOPROLOL SUCC 25MG EXT REL TAB PO SCH (09:58)
--- NOTE | 2021-05-06 10:11 | Hospitalist Progress Note ---
Date of Service May 06, 2021 Assessment & Plan (1) Acute [place], inferior wall: (2) Postsurgical percutaneous transluminal coronary angioplasty (PTCA) status: Plan: This is a 60yo F with a PMH of DM II, dyslipidemia, HTN, CKD III, HAL and other medical problems listed below who presents as a heart alert after abnormal outpatient dobutamine stress test at [facility] on 05/05/21 and is s/p cardiac catheterization with BUFFY x 3. [address] elevation in the inferior leads during dobutamine stress test on 05/05/21 Referred to ED and EKG showed persistent 1.[address] elevation over Q waves in the inferior leads with ST depression in leads I and aVL Underwent cardiac catheterization by Dr. Mcdonnell with successful PCI of mid RCA with BUFFY, ostial R-PDA with BUFFY and R-PLB with BUFFY Plan to medically manage small vessel disease in apical LAD, distal circumflex, D2 Mgmt per cardiology. Completed Integrelin course at 0600 today Continue aspirin, Imdur, Crestor, Zetia (3) Acute systolic heart failure: Plan: TTE yesterday revealed mild global hypokinesis, LVEF 45-50% Patient developed post procedure SOB last evening IV fluids were discontinued and patient given 20mg IV Lasix with effective overn ight diuresis Cardiology considering discharge on 20mg lasix (4) Insulin dependent diabetes mellitus: Plan: A1c 6.9 earlier this month Hold home agents SSI while in-patient BSG AC HS (5) Hypertension: Plan: Continue Lopressor Holding lisinopril in setting of worsened renal function but consider resuming tomorrow if improved (6) Mixed hyperlipidemia: Plan: Not on statin due to myalgias in the past. Continue Zetia Continue trial of Crestor May need MTM referral as outpatient for consideration of PCSK9 agent Patient seen in collaboration with Dr. Rockwell. Please see addendum. (7) HAL (generalized anxiety disorder): Plan: Continue SSRI PCP: Jelena Dispo: Admitted to ICU Patient seen in collaboration with Dr. Rockwell. Please see addendum. Admission and Anticipated Discharge Date Admission Date: May 05, 2021 Supervising Physician Co-Signing Physician Notes Patient seen and examined today 60yo F w/ h/o HTN, DM2, CKD who has been having exertional dyspnea for months and had DSE outpatient today during which she developed ischemic changes with abnormal Echo resulting in admission for cardiac catheterization and PCI to RCA, PDA,PLB. Reports feeling more energetic today. No chest pain. No SOB at rest Physical exam notable for obesity. Lab work notable for Cr of 1.31 (baseline of 1.2-1.3 based on outpatient labs) -Coronary Artery Disease -Acute TN -Acute systolic heart failure Abnormal stress echo with new inferior DEONDRE S/p PCI with BUFFY to mRCA, ostial R-PDA and R-PLB Currently on ASA, Brilinta, Rosuvastatin per Cardiology recs Continue home zetia Started on Toprol XL per Cards this AM Home lisinopril on hold Tele monitoring Can transfer out of ICU Subjective Patient seen and examined in 103-1. Feeling much better today. Had acute onset of dyspnea yesterday evening around dinnertime. No associated palpitations or CP. Fluids were discontinue and patient received IV Lasix. [place] progressively better all night with diuresis and symptoms have now completely resolved. Denies fever, chills, lightheadedness, palptations, nausea, vomiting, abdominal pain, dysuria, diarrhea or constipation. Physical Exam Physical Exam: General Appearance: WD/WN, vitals as above, NAD, sitting up in bed, pleasant, conversing easily Head: normocephalic, atraumatic Eyes: normal inspection, PERRL, conjunctivae normal, anicteric sclerae ENT: external ear and nose normal, oropharynx normal Neck: normal visual inspection, trachea midline, no thyromegaly Respiratory: normal respiratory effort, lungs clear to auscultation, no wheeze, rales, rhonchi. No accessory muscle use Cardiovascular: regular rate, rhythm, no murmur, normal peripheral pulses, no BLE edema. Vessels: no JVD Chest: normal inspection of chest Abdomen/GI: normal bowel sounds, soft, nontender, no hepatosplenomegaly Extremities/Musculoskeletal: No cyanosis or clubbing, extremities motor strength 5/5 Neurologic: PERRL, EOMI, accommodation nl, no face palsy, no dysarthria, CN's II-XI intact bilaterally and moves all extremities Psychiatric: A+Ox3, euthymic affect Skin: no rashes, normal color, warm/dry Results & Data Results & Data ([facility]) Vital Signs (Past 12 Hours) Vital Signs Temp Pulse Resp BP Pulse Ox 05/06/21 06:00 56 L 21 124/68 96 05/06/21 04:30 36.8 C 57 L 13 94 05/06/21 03:28 57 L 21 115/51 L 95 05/06/21 02:28 57 L 18 139/61 94 05/06/21 01:28 62 20 121/52 L 94 05/06/21 00:28 36.8 C 55 L 17 126/56 L 95 05/05/21 23:28 66 18 148/65 H 91 05/05/21 22:28 58 L 13 141/83 H 96 Laboratory Results Short CBC 05/05/21 05/06/21 Range/Units 12:26 03:38 WBC 9.57 10.94 H (4.8-10.8) K/uL Hgb 11.6 L 11.4 L (12.0-16.0) g/dL Hct 35.5 L 34.4 L (37-47) % Plt Count 382 356 (130-400) K/uL BMP 05/05/21 05/06/21 12:26 03:38 Sodium 140 137 Potassium 3.9 4.0 Chloride 109 H 108 H Carbon Dioxide 25 22 BUN 27 H 27 H Creatinine 1.21 H 1.31 H Glucose 100 H 110 H Calcium 9.3 8.6 Cardiac Enzymes 05/05/21 05/05/21 05/06/21 Range/Units 12:26 21:50 03:38 Troponin I < 0.015 1.200 H* 3.090 H* (0-0.045) ng/ml 05/06/21 Range/Units 08:18 Troponin I 3.180 H* (0-0.045) ng/ml Liver Function 05/05/21 05/06/21 Range/Units 12:26 03:38 Total Bilirubin 0.4 0.5 (0.2-1) mg/dl AST 14 L 31 (15-37) U/L ALT 20 19 (12-78) U/L Alkaline Phosphatase 87 81 (45-117) U/L Albumin 3.4 3.1 L (3.4-5.0) gm/dl Diagnostic Findings Chest X-Ray 05/05/21 12:16 SINGLE VIEW CHEST CLINICAL HISTORY: Atypical chest pain. FINDINGS: An AP, portable, upright chest radiograph is obtained. No prior studies are available for comparison at the time of dictation. The heart is enlarged noting atherosclerotic calcification of the thoracic aorta. The pulmonary vasculature is noncongested. There is mild bibasilar scarring/atelectasis. No airspace consolidation or large pleural effusion is identified. No pneumothorax is seen. The skeletal structures are osteopenic. The bony thorax is grossly intact. IMPRESSION: Cardiomegaly with no acute cardiopulmonary abnormality. ACT 112: Negative or not required by law. Electronically signed by: Deep Jarrett M.D. 05/05/2021 12:41 PM Chest X-Ray 05/06/21 08:25 XR chest 1V portable HISTORY: covid pneumonia COMPARISON: Chest 05/05/2021. FINDINGS: No pneumothorax. No pleural effusions. There are low lung volumes. The heart remains mildly enlarged. Stable linear scarlike density at the left lung base. Mild chronic interstitial thickening is also unchanged. No new focal lung consolidations. No evidence for pulmonary edema. IMPRESSION: No significant change compared to the prior study. No acute process. ACT 112: Negative or not required by law. Electronically signed by: Willi Zimmer M.D. 05/06/2021 9:18 AM
--- NOTE | 2021-05-06 14:45 | Pharmacy Report ---
Pharmacy Glycemic Short Note 2 - Date of Service May 06, 2021 - Glycemic Short BSG Results (Last 24 hours): 05/05/21 05/05/21 05/06/21 16:30 20:14 03:38 Glucose 110 H POC Glucose 80 152 H 05/06/21 05/06/21 07:20 11:35 Glucose POC Glucose 105 H 118 H OUTPATIENT ANTIDIABETIC REGIMEN: * Jardiance 25 units daily * Lantus 28 units HS * Ozempic 0.5 mg weekly * A1c 6.9% 04/27/21 ASSESSMENT: * Patient admitted with STEMI, s/p PCI with stent placement * Blood sugars have been well controlled with regimen in place- [phone] mg/dL * Will continue lantus scale for PM and current novolog parameters PLAN FOR INPATIENT GLYCEMIC CONTROL: * Hold outpatient oral diabetes medications * Basal insulin * Lantus 15/20 units SQ BID * Bolus insulin * NovoLog per scale ACHS or Q6hrs while NPO * Goal Range: Low 110 mg/dL - High 140 mg/dL * Correction Factor: 30 mg/dL/unit * Nutritional / Prandial insulin per carb ratio of 1 unit per 10 grams CHO consumed PLAN FOR DISCHARGE: * Patient controlled on outpatient regimen, patient may resume on discharge if no other contraindications or hypoglycemia.
--- NOTE | 2021-05-06 15:42 | Billing Data ---
Date of Service May 06, 2021 Coding Level of Care Code 26386 Subseq Hosp Care Lvl 3
--- NOTE | 2021-05-06 15:42 | Billing Data ---
Date of Service May 05, 2021 Coding Level of Care Code 87941 Initial Inpt Care Lvl 3
[2021-05-06] MEDS: PANTOprazole 40 MG TAB PO SCH (16:27)
[2021-05-06] MEDS ORDERED: ALUMINUM/MAGNESIUM SUSP 30 ML UDC PO PRN (19:12)
[2021-05-06] MEDS: INSULIN GLARGINE SOLOSTAR 100 UNITS/ML 3 ML PEN SC SCH (20:19)
--- NOTE | 2021-05-06 21:42 | Electrocardiogram Report ---
Test Reason : Blood Pressure : / mmHG Vent. Rate : 059 BPM Atrial Rate : 059 BPM P-R Int : 162 ms QRS Dur : 100 ms QT Int : 418 ms P-R-T Axes : 013 001 117 degrees QTc Int : 413 ms Sinus bradycardia Inferior infarct , age undetermined ST elevation, consider inferior injury Cannot rule out Anterior infarct , age undetermined Abnormal ECG No previous ECGs available Confirmed by Cuauhtemoc Larkin ([id number]) on 05/06/2021 9:42:02 PM Referred By: REFERRED SELF Confirmed By:Cuauhtemoc Larkin
[2021-05-06] MEDS: SODIUM CHLORIDE 0.9% 1000ML 1,000 ML IV SCH (22:08)
--- NOTE | 2021-05-06 22:21 | Electrocardiogram Report ---
Test Reason : Blood Pressure : / mmHG Vent. Rate : 068 BPM Atrial Rate : 068 BPM P-R Int : 166 ms QRS Dur : 090 ms QT Int : 416 ms P-R-T Axes : 023 -11 100 degrees QTc Int : 442 ms Poor data quality, interpretation may be adversely affected Normal sinus rhythm Left ventricular hypertrophy with repolarization abnormality ST elevation, consider inferior injury Inferior infarct (cited on or before 05-MAY-2021) Abnormal ECG When compared with ECG of 05-MAY-2021 12:20, No significant change was found Confirmed by Cuauhtemoc Larkin ([id number]) on 05/06/2021 10:20:48 PM Referred By: REFERRED SELF Confirmed By:Cuauhtemoc Larkin
--- NOTE | 2021-05-06 22:34 | Electrocardiogram Report ---
Test Reason : Blood Pressure : / mmHG Vent. Rate : 063 BPM Atrial Rate : 063 BPM P-R Int : 150 ms QRS Dur : 100 ms QT Int : 418 ms P-R-T Axes : 032 -11 118 degrees QTc Int : 427 ms Normal sinus rhythm Inferior infarct (cited on or before 05-MAY-2021) Abnormal ECG When compared with ECG of 05-MAY-2021 20:08, No significant change was found Confirmed by Cuauhtemoc Larkin ([id number]) on 05/06/2021 10:34:28 PM Referred By: REFERRED SELF Confirmed By:Cuauhtemoc Larkin
[2021-05-07 05:15] LABS: Basophils # (auto) 0.04 K/uL (0-0.2); Basophils % (auto) 0.3 %; Eosinophils # (auto) 0.43 K/uL (0-0.5); Eosinophils % (auto) 3.6 %; Hematocrit (blood only) 33.7 % (37-47); Hemoglobin 11.1 g/dL (12.0-16.0); Immature Granulocytes # (auto) 0.07 K/uL (0.00-0.02); Immature Granulocytes % (auto) 0.6 %; Lymphocytes # (auto) 2.25 K/uL (1.2-3.4); Lymphocytes % (auto) 18.6 %; Mean Corpuscular Hemoglobin 29.6 pg (25-34); Mean Corpuscular Hgb Conc 32.9 g/dL (32-36); Mean Corpuscular Volume 89.9 fL (80-100); Mean Platelet Volume 9.4 fL (7.4-10.4); Monocytes # (auto) 0.86 K/uL (0.11-0.59); Monocytes % (auto) 7.1 %; Neutrophils # (auto) 8.43 K/uL (1.4-6.5); Neutrophils % (auto) 69.8 %; Platelet Count 321 K/uL (130-400); RDW Coefficient of Variation 12.8 % (11.5-14.5); RDW Standard Deviation 41.7 fL (36.4-46.3); Red Blood Count 3.75 M/uL (4.2-5.4); White Blood Count 12.08 K/uL (4.8-10.8)
[2021-05-07 05:32] LABS: BUN Creatinine Ratio 25.2 (10-20); Creatinine Clr Calc Pharmacy 48.3 ml/min; Est GFR (African American) 37.9 ml/min; Est GFR (Non-African American) 32.7 ml/min; Magnesium 2.1 mg/dl (1.8-2.4)
[2021-05-07 05:34] LABS: Albumin Globulin Ratio 0.9 (0.9-2); Bilirubin,Total 0.5 mg/dl (0.2-1); Globulin 3.4 gm/dl (2.5-4.0); Phosphorus 3.4 mg/dl (2.5-4.9); Total Protein 6.4 gm/dl (6.4-8.2)
[2021-05-07] MEDS: ROSUVASTATIN CALCIUM 20 MG TAB PO SCH (08:38)
[2021-05-07] MEDS: TICAGRELOR 90 MG TAB PO SCH ×2 (08:38→20:08)
[2021-05-07] MEDS: PANTOprazole 40 MG TAB PO SCH (08:38)
[2021-05-07] MEDS: CITALOPRAM 20 MG TAB PO SCH (08:39)
[2021-05-07] MEDS: GABAPENTIN 800 MG TAB PO SCH ×3 (08:39→20:08)
[2021-05-07] MEDS: METOPROLOL SUCC 25MG EXT REL TAB PO SCH (08:39)
[2021-05-07] MEDS: ASPIRIN 81 MG ECTAB PO SCH (08:39)
[2021-05-07] MEDS: EZETIMIBE 10 MG TABLET PO SCH (08:39)
[2021-05-07] MEDS: INSULIN ASPART 100 UNITS/ML 3 ML PEN SC SCH ×4 (08:40→20:08)
--- NOTE | 2021-05-07 10:28 | Cardiology Progress Note ---
Date of Service May 07, 2021 Assessment & Plan (1) Acute [place], inferior wall: (2) Contrast dye induced nephropathy: (3) Hypertension: (4) Mixed hyperlipidemia: (5) Acute systolic heart failure: (6) Ischemic cardiomyopathy: Plan: Creatinine trending upward today likely secondary to contrast-induced nephropathy. Encourage oral hydration. Hold CHARLIE inhibitor.Outpatient dose of lisinopril 40 mg daily. Will not treat with IV hydration due to ischemic cardiomyopathy and elevated left ventricular end-diastolic pressure during cardiac catheterization. Repeat basic metabolic panel in a.m. Discussed importance of continuing dual antiplatelet therapy for minimum of 12 months post percutaneous intervention. Continue beta-theresa and high intensity statin therapy. Post procedural activity restrictions reviewed. Repeat outpatient 2D echocardiogram in 12 weeks. Discussed referral for cardiac rehab. Patient agreeable. Medical management of small vessel disease in apical LAD, distal circumflex, D2. Admission and Anticipated Discharge Date Admission Date: May 05, 2021 Subjective Patient seen and examined at the bedside. Feeling well from a cardiovascular perspective. Denies chest pain or shortness of breath. Ambulating the sanchez without restriction. No signs/symptoms of GI/ blood loss. Creatinine elevated this morning. Review of Systems Review of Systems: All systems reviewed & are unremarkable except as noted in Subjective Physical Exam Constitutional: well developed, well nourished and + obese; no acute distress Respiratory: normal respiratory effort; no respiratory distress, no labored breathing and no retractions Auscultation: lungs clear to auscultation bilaterally; no crackles, no rales, no rhonchi and no wheezes Cardiovascular: Rate/Rhythm: regular rate and regular rhythm Heart Sounds: normal S1 and normal S2; no gallop, no murmur and no cardiac rub Vessels: no JVD, no carotid bruit and + radial pulses abnormal Extremities: no edema Gastrointestinal (Abdomen): Inspection/Auscultation: abdomen normal to inspection and normal bowel sounds; abdomen not distended and no abdominal edema Percussion/Palpation: abdomen soft; abdomen nontender, no guarding and abdomen not rigid Neurologic: CN's II-XI intact bilaterally and moves all extremities; no focal motor deficits Motor/Sensory: no tremor Psychiatric: A+Ox3, euthymic affect Results & Data ([facility]) Vital Signs (Past 12 Hours) Vital Signs Temp Pulse Pulse Resp BP Pulse Ox 05/07/21 03:15 36.8 C 77 18 111/65 94 05/07/21 00:00 63 05/06/21 23:20 36.6 C 73 17 146/66 H 99
--- NOTE | 2021-05-07 11:34 | Hospitalist Progress Note ---
Date of Service May 07, 2021 Assessment & Plan (1) Acute [place], inferior wall: (2) Acute systolic heart failure: (3) Postsurgical percutaneous transluminal coronary angioplasty (PTCA) status: Plan: 60yo F with a PMH of DM II, dyslipidemia, HTN, CKD III, HAL and other medical problems listed below who presents as a heart alert after abnormal outpatient dobutamine stress test at [facility] on 05/05/21 and is s/p cardiac catheterization with BUFFY x 3. [address] elevation in the inferior leads during dobutamine stress test on 05/05/21 Referred to ED and EKG showed persistent 1.[address] elevation over Q waves in the inferior leads with ST depression in leads I and aVL Underwent cardiac catheterization by Dr. Mcdonnell with successful PCI of mid RCA with BUFFY, ostial R-PDA with BUFFY and R-PLB with BUFFY TTE revealed mild global hypokinesis, LVEF 45-50% Plan to medically manage small vessel disease in apical LAD, distal circumflex, D2 Mgmt per cardiology. Completed Integrilin Continue aspirin and Brilinta Continue metoprolol succinate, Imdur, Crestor, Zetia (4) Acute renal failure superimposed on stage 3 chronic kidney disease: Plan: Creatinine baseline is 1.2-1.3 Creatinine is increased today to 1.66 Likely contrast-induced nephropathy in the setting of cardiac catheterization. We will encourage oral fluid intake today and monitor Avoid IV fluids for now due to cardiac function Check renal function tomorrow (5) Insulin dependent diabetes mellitus: Plan: A1c 6.9 earlier this month Hold home agents SSI while in-patient BSG AC HS (6) Hypertension: Plan: Continue Lopressor Holding lisinopril in setting of worsened renal function but consider resuming tomorrow if improved (7) Mixed hyperlipidemia: Plan: Was not on statin due to myalgias in the past. Continue Zetia Tolerating Crestor May need MTM referral as outpatient for consideration of PCSK9 agent (8) HAL (generalized anxiety disorder): Plan: Continue SSRI PCP: Jelena Plan: Possible DC home tomorrow Admission and Anticipated Discharge Date Admission Date: May 05, 2021 Subjective 60yo F w/ h/o HTN, DM2, CKD who has been having exertional dyspnea for months and had DSE outpatient today during which she developed ischemic changes with abnormal Echo resulting in admission for cardiac catheterization and PCI to RCA, PDA,PLB. Being managed for acute inferior wall FL, acute systolic heart failure. Patient seen and examined today. Reports improvement in energy and significant improvement in exertional dyspnea. Denies any chest pain, shortness of breath. Denies any other complaints. Review of Systems Review of Systems: All systems reviewed & are unremarkable except as noted in Subjective Physical Exam Constitutional: + well hydrated and + obese; no acute distress Eyes: PERRL, conjunctivae normal, anicteric sclerae ENMT: external ear and nose normal, oropharynx normal Respiratory: normal respiratory effort, lungs clear to auscultation Cardiovascular: RRR. S1-S2 no pedal edema Gastrointestinal (Abdomen): normal bowel sounds, soft, nontender, no hepatosplenomegaly Musculoskeletal: no cyanosis or clubbing, extremities motor strength 5/5 Neurologic: PERRL, EOMI, accommodation nl, no face palsy, no dysarthria Psychiatric: A+Ox3, euthymic affect Results & Data Results & Data ([facility]) Vital Signs (Past 12 Hours) Vital Signs Temp Pulse Pulse Resp BP Pulse Ox 05/07/21 09:30 78 19 05/07/21 08:01 77 28 H 05/07/21 08:00 36.8 C 64 05/07/21 07:00 75 9 L 05/07/21 06:00 58 L 13 05/07/21 05:00 68 17 05/07/21 04:00 62 14 05/07/21 03:15 36.8 C 77 18 111/65 94 05/07/21 03:00 60 13 05/07/21 02:00 71 17 05/07/21 01:00 64 18 05/07/21 00:00 60 15 Laboratory Results Abnormal lab results 05/06/21 05/06/21 05/06/21 Range/Units 16:11 20:07 20:10 WBC (4.8-10.8) K/uL RBC (4.2-5.4) M/uL Hgb (12.0-16.0) g/dL Hct (37-47) % Neut # (Auto) (1.4-6.5) K/uL Kane # (Auto) (0.11-0.59) K/uL Immature Gran # (Auto) (0.00-0.02) K/uL Sodium (136-145) mmol/L Anion Gap (3-11) BUN (7-18) mg/dl Creatinine (0.6-1.2) mg/dl BUN/Creatinine Ratio (10-20) Glucose (70-99) mg/dl POC Glucose 152 H 212 H 193 H (70-99) mg/dl Albumin (3.4-5.0) gm/dl 05/07/21 05/07/21 05/07/21 Range/Units 05:01 05:01 07:45 WBC 12.08 H (4.8-10.8) K/uL RBC 3.75 L (4.2-5.4) M/uL Hgb 11.1 L (12.0-16.0) g/dL Hct 33.7 L (37-47) % Neut # (Auto) 8.43 H (1.4-6.5) K/uL Kane # (Auto) 0.86 H (0.11-0.59) K/uL Immature Gran # (Auto) 0.07 H (0.00-0.02) K/uL Sodium 133 L (136-145) mmol/L Anion Gap 2.0 L (3-11) BUN 42 H D (7-18) mg/dl Creatinine 1.66 H D (0.6-1.2) mg/dl BUN/Creatinine Ratio 25.2 H (10-20) Glucose 131 H (70-99) mg/dl POC Glucose 112 H (70-99) mg/dl Albumin 3.0 L (3.4-5.0) gm/dl 05/07/21 Range/Units 11:15 WBC (4.8-10.8) K/uL RBC (4.2-5.4) M/uL Hgb (12.0-16.0) g/dL Hct (37-47) % Neut # (Auto) (1.4-6.5) K/uL [place] # (Auto) (0.11-0.59) K/uL Immature Gran # (Auto) (0.00-0.02) K/uL Sodium (136-145) mmol/L Anion Gap (3-11) BUN (7-18) mg/dl Creatinine (0.6-1.2) mg/dl BUN/Creatinine Ratio (10-20) Glucose (70-99) mg/dl POC Glucose 130 H (70-99) mg/dl Albumin (3.4-5.0) gm/dl
[2021-05-07] MEDS: INSULIN GLARGINE SOLOSTAR 100 UNITS/ML 3 ML PEN SC SCH (20:09)
[2021-05-08 05:29] LABS: Basophils # (auto) 0.04 K/uL (0-0.2); Basophils % (auto) 0.3 %; Eosinophils # (auto) 0.24 K/uL (0-0.5); Eosinophils % (auto) 2.1 %; Hemoglobin 10.7 g/dL (12.0-16.0); Immature Granulocytes # (auto) 0.05 K/uL (0.00-0.02); Immature Granulocytes % (auto) 0.4 %; Lymphocytes # (auto) 2.04 K/uL (1.2-3.4); Lymphocytes % (auto) 17.6 %; Mean Corpuscular Hemoglobin 29.4 pg (25-34); Mean Corpuscular Hgb Conc 32.4 g/dL (32-36); Mean Corpuscular Volume 90.7 fL (80-100); Mean Platelet Volume 9.7 fL (7.4-10.4); Monocytes # (auto) 0.93 K/uL (0.11-0.59); Neutrophils # (auto) 8.32 K/uL (1.4-6.5); Neutrophils % (auto) 71.6 %; Platelet Count 329 K/uL (130-400); RDW Coefficient of Variation 12.9 % (11.5-14.5); RDW Standard Deviation 43.1 fL (36.4-46.3); Red Blood Count 3.64 M/uL (4.2-5.4); White Blood Count 11.62 K/uL (4.8-10.8)
[2021-05-08 05:58] LABS: BUN Creatinine Ratio 25.2 (10-20); Calcium 9.3 mg/dl (8.5-10.1); Creatinine Clr Calc Pharmacy 58.6 ml/min; Est GFR (African American) 47.8 ml/min; Est GFR (Non-African American) 41.2 ml/min; Magnesium 2.3 mg/dl (1.8-2.4); Potassium 4.6 mmol/L (3.5-5.1)
[2021-05-08 06:01] LABS: Albumin Globulin Ratio 0.8 (0.9-2); Bilirubin,Total 0.5 mg/dl (0.2-1); Globulin 3.6 gm/dl (2.5-4.0); Phosphorus 3.3 mg/dl (2.5-4.9); Total Protein 6.6 gm/dl (6.4-8.2)
[2021-05-08] MEDS: INSULIN ASPART 100 UNITS/ML 3 ML PEN SC SCH (09:03)
[2021-05-08] MEDS: ROSUVASTATIN CALCIUM 20 MG TAB PO SCH (09:04)
[2021-05-08] MEDS: PANTOprazole 40 MG TAB PO SCH (09:04)
[2021-05-08] MEDS: METOPROLOL SUCC 25MG EXT REL TAB PO SCH (09:04)
[2021-05-08] MEDS: CITALOPRAM 20 MG TAB PO SCH (09:05)
[2021-05-08] MEDS: EZETIMIBE 10 MG TABLET PO SCH (09:05)
[2021-05-08] MEDS: TICAGRELOR 90 MG TAB PO SCH (09:05)
[2021-05-08] MEDS: GABAPENTIN 800 MG TAB PO SCH (09:05)
[2021-05-08] MEDS: ASPIRIN 81 MG ECTAB PO SCH (09:05)
--- NOTE | 2021-05-08 10:07 | Discharge Summary ---
Date of Service May 08, 2021 Admission HPI Per Admitting Provider This is a 60yo F with a PMH of DM II, dyslipidemia, HTN, CKD III, HAL and other medical problems listed below who presents as a heart alert after abnormal outpatient dobutamine stress test at [facility] earlier today. Had been experiencing intermittent dyspnea on exertion for the past 6 months. During stress test, patient developed ST elevation in the inferior leads. No chest discomfort. TTE today revealed mild global hypokinesis, LVEF 45-50%. Patient was referred to ED and EKG showed persistent 1.[address] elevation over Q waves in the inferior leads with ST depression in leads I and aVL. Underwent cardiac cat heterization by Dr. Mcdonnell with successful PCI of mid RCA with BUFFY, ostial R-PDA with BUFFY and R-PLB with BUFFY. History of smoking, quit in 2018. Seen and examined in 103-1. Patient feeling well post-cath. No CP or SOB. Tolerating dinner without issue. No fever, chills, lightheadedness, palpitations, nausea, vomiting, abdominal pain, dysuria, diarrhea or constipation. Admission Exam Per Admitting Provider General Appearance: WD/WN, vitals as above, NAD, sitting up in bed, pleasant, conversing easily Head: normocephalic, atraumatic Eyes: normal inspection, PERRL, conjunctivae normal, anicteric sclerae ENT: external ear and nose normal, oropharynx normal Neck: normal visual inspection, trachea midline, no thyromegaly Respiratory: normal respiratory effort, lungs clear to auscultation, no wheeze, rales, rhonchi. No accessory muscle use Cardiovascular: regular rate, rhythm, no murmur, normal peripheral pulses, no BLE edema. Vessels: no JVD Chest: normal inspection of chest Abdomen/GI: normal bowel sounds, soft, nontender, no hepatosplenomegaly Extremities/Musculoskeletal: R wrist guard in place- no bleeding. No cyanosis or clubbing, extremities motor strength 5/5 Neurologic: PERRL, EOMI, accommodation nl, no face palsy, no dysarthria, CN's II-XI intact bilaterally and moves all extremities Psychiatric: A+Ox3, euthymic affect Skin: no rashes, normal color, warm/dry Principal Diagnosis (1) Acute OH, inferior wall: (2) Contrast dye induced nephropathy: (3) Hypertension: (4) Mixed hyperlipidemia: (5) Acute systolic heart failure: (6) Ischemic cardiomyopathy Discharge Exam Constitutional + well hydrated and + obese; no acute distress Eyes PERRL, conjunctivae normal, anicteric sclerae ENMT external ear and nose normal, oropharynx normal Respiratory normal respiratory effort, lungs clear to auscultation Cardiovascular RRR. S1 S2 Gastrointestinal (Abdomen) normal bowel sounds, soft, nontender, no hepatosplenomegaly Musculoskeletal no cyanosis or clubbing, extremities motor strength 5/5 Neurologic PERRL, EOMI, accommodation nl, no face palsy, no dysarthria Psychiatric A+Ox3, euthymic affect Discharge Data Allergies Allergy/AdvReac Type Severity Reaction Status Date / Time No Known Allergies Allergy Unverified 05/05/21 12:42 Consultations 05/05/21 12:16 Consult Cardiology Stat 05/05/21 13:14 Consult Ethyl Blender Routine 05/05/21 15:56 Consult Cardiac Rehabilitation Routine Procedures Performed Operation Date: 05/05/21 12:30 Actual Procedures p Aspiration/PCI w/BUFFY for Stemi - Greg Mcdonnell MD Ordered Studies 05/05/21 12:24 CL Cath Imgs for PACS use only Stat Hospital Course (1) Acute OH, inferior wall: (2) Acute systolic heart failure: (3) Postsurgical percutaneous transluminal coronary angioplasty (PTCA) status: 60yo F with a PMH of DM II, dyslipidemia, HTN, CKD III, HAL and other medical problems listed below who presents as a heart alert after abnormal outpatient dobutamine stress test at [facility] on 05/05/21 and is s/p cardiac catheterization with BUFFY x 3. Develop[address] elevation in the inferior leads during dobutamine stress test on 05/05/21 Referred to ED and EKG showed persistent 1.[address] elevation over Q waves in the inferior leads with ST depression in leads I and aVL Underwent cardiac catheterization by Dr. Mcdonnell with successful PCI of mid RCA with BUFFY, ostial R-PDA with BUFFY and R-PLB with BUFFY TTE revealed mild global hypokinesis, LVEF 45-50% Plan to medically manage small vessel disease in apical LAD, distal circumflex, D2 Completed Integrilin Started on aspirin and Brilinta on discharge Started metoprolol succinate, Imdur, Crestor Continue Zetia Follow up with Cardiology outpatient Lisinopril reduced to 10mg daily from 40mg per my conversation with seismic interpreter (4) Acute renal failure superimposed on stage 3 chronic kidney disease: Creatinine baseline is 1.2-1.3 Creatinine peaked at 1.66 yesterday, down to 1.37 today Likely contrast-induced nephropathy in the setting of cardiac catheterization. To get BMP on 05/12/21 and follow up with PCP on appt on 05/13/21 (5) Insulin dependent diabetes mellitus: A1c 6.9 earlier this month Continue home diabetic regimen (6) Hypertension: Lisinopril reduced to 10mg daily Continue other medications as detailed above (7) Mixed hyperlipidemia: Was not on statin due to myalgias in the past. Continue Zetia Was started on crestor inpatient. Tolerating well. Was discharged on this May need MTM referral as outpatient for consideration of PCSK9 agent (8) HAL (generalized anxiety disorder): Continue SSRI PCP: Jelena Total Time Total Time Spent Total Time Spent (In Minutes): 50 Total Time Includes: Examination of the Patient, Discharge Planning, Medication Reconciliation and Communication With Other Providers Discharge Plan Discharge Items Patient Disposition: Home - Self-Care Reason For Visit: STEMI Discharge Diagnosis: Acute inferior wall myocardial infarction Acute systolic heart failure Activity: Resume your previous activity Non-emergency contact: Primary Care Provider and Credit Card Specialist Call non-emergency contact if: you have any medication questions and your symptoms worsen Follow-up/Referrals: Sonido Bowles MD [Primary Care Provider] - (Date & Time 05/13/2021 12:00 PM Provider Sonido Bowles MD Department Family Practice [facility] PLEASE NOTE THAT THIS IS A TELEHEALTH APPOINTMENT. PLEASE FOLLOW THE INSTRUCTIONS PROVIDED IN YOUR EMAIL. IF YOU HAVE ANY QUESTIONS REGARDING THIS APPOINTMENT OR WOULD LIKE TO SEE THE PHYSICIAN IN PERSON, PLEASE CALL [phone]. Your previous appointment on Sunday was rescheduled to Sunday due to hospitalization.) Diet: Heart Healthy and Low Sodium (2gm) Ambulatory Orders: Basic Metabolic Panel (Routine) Timeframe: [id number] Location: Determined by Patient Ordered By: Agatha Boyd Attending Provider Instructions: Mrs Angel. You were admitted from Cardiology office where you had abnormal stress test. You were emergently taken to the cardiac catheterization lab and received 3 stents. You were managed in the ICU with the Credit Card Specialist. Certain new medications were started for your coronary artery disease and new heart problems. You were started on aspirin, brilinta, rosuvastatin and metoprolol. Please take all medications as prescribed. It is very important that you follow up with the Credit Card Specialist and your Primary Doctor. It was a pleasure taking care of you. Pending Studies at Discharge: No Stand-Alone Forms: My [facility] [employer], Smoking Cessation Medications and DC Order Prescriptions: New Brilinta 90 mg Tablet 90 mg PO BID Qty: 30 RF: 0 lisinopril 10 mg tablet 10 mg PO HS Qty: 30 RF: 0 metoprolol succinate 25 mg Tablet Extended Release 24 Hr 12.5 mg PO QAM 30 Days Qty: 15 RF: 0 rosuvastatin [Crestor] 20 mg Tablet 20 mg PO QAM Qty: 30 RF: 0 aspirin 81 mg Tablet,Delayed Release (Dr/Ec) 81 mg PO QAM Qty: 30 RF: 0 pantoprazole 40 mg Tablet,Delayed Release (Dr/Ec) 40 mg PO QAM Qty: 30 RF: 0 Continued citalopram 20 mg tablet 20 mg PO DAILY RF: 0 gabapentin 800 mg tablet 800 mg PO TID RF: 0 ezetimibe 10 mg tablet 10 mg PO DAILY RF: 0 Lantus Solostar U-100 Insulin 100 unit/mL (3 mL) insulin pen 28 unit SUBCUT HS RF: 0 Jardiance 25 mg tablet 25 mg PO DAILY RF: 0 multivitamin Tablet 1 tab PO DAILY RF: 0 vitamin B complex Tablet Extended Release 1 tab PO DAILY RF: 0 Ozempic 0.25 mg or 0.5 mg(2 mg/1.5 mL) Pen Injector 0.5 mg SUBCUT FREGOSO@0900 RF: 0 Discontinued lisinopril 40 mg tablet 40 mg PO DAILY RF: 0 diclofenac sodium 75 mg tablet,delayed release (DR/EC) 75 mg PO BID RF: 0 Discharge Orders: Discharge Order (Routine); Ordered 05/08/21 Ordered By: Agatha Rockwell Admission Data Admit Date/Time: 05/05/21 13:12 Attending Provider: Agatha Rockwell I. Admit Provider: Faheem Brewer Primary Care Provider: Sonido Bowles Other Providers: Vasquez Patel ; Margarita Pagan ; Faheem Brewer ; Aminata Osorio Other Interventions: Discharge Summary Assessment (RN) Last Done: 05/08/21 10:12
--- NOTE | 2021-05-08 11:10 | Cardiology Progress Note ---
Date of Service May 08, 2021 Assessment & Plan (1) Acute GA, inferior wall: (2) Contrast dye induced nephropathy: (3) Hypertension: (4) Mixed hyperlipidemia: (5) Acute systolic heart failure: (6) Ischemic cardiomyopathy: Plan: Serum creatinine trending downward. Encourage oral hydration. Restart lisinopril 10 mg daily (reduced dose). Repeat basic metabolic panel in 5-7 days. Discussed importance of continuing dual antiplatelet therapy for minimum of 12 months post percutaneous intervention. Continue beta-theresa and high intensity statin therapy. Repeat outpatient 2D echocardiogram in 12 weeks. Discussed referral for cardiac rehab. Patient agreeable. Medical management of small vessel disease in apical LAD, distal circumflex, D2. Admission and Anticipated Discharge Date Admission Date: May 05, 2021 Subjective Patient seen and examined the bedside. Feeling well from a cardiovascular perspective. Denies chest pain or shortness of breath. Telemetry reveals sinus rhythm with occasional PVCs. Serum creatinine trending down to 1.37. Review of Systems Review of Systems: All systems reviewed & are unremarkable except as noted in Subjective Physical Exam Constitutional: well developed, well nourished and + obese; no acute distress Respiratory: normal respiratory effort; no respiratory distress, no labored breathing and no retractions Auscultation: lungs clear to auscultation bilaterally; no crackles, no rales, no rhonchi and no wheezes Cardiovascular: Rate/Rhythm: regular rate and regular rhythm Heart Sounds: normal S1 and normal S2; no gallop, no murmur and no cardiac rub Vessels: no JVD, no carotid bruit and + radial pulses abnormal Extremities: no edema Gastrointestinal (Abdomen): Inspection/Auscultation: abdomen normal to inspection and normal bowel sounds; abdomen not distended and no abdominal edema Percussion/Palpation: abdomen soft; abdomen nontender, no guarding and abdomen not rigid Neurologic: CN's II-XI intact bilaterally and moves all extremities; no focal motor deficits Motor/Sensory: no tremor Psychiatric: A+Ox3, euthymic affect Results & Data ([facility]) Vital Signs (Past 12 Hours) Vital Signs Temp Pulse Pulse Resp BP BP Pulse Ox 05/08/21 10:12 37.3 C 72 16 151/72 H 120/65 94 05/08/21 08:00 67 05/08/21 03:12 37.3 C 72 16 151/72 H 94 05/07/21 23:26 37.8 C H 75 16 114/64 96
--- NOTE | 2021-05-17 07:41 | Electrocardiogram Report ---
Test Reason : Blood Pressure : / mmHG Vent. Rate : 068 BPM Atrial Rate : 068 BPM P-R Int : 166 ms QRS Dur : 090 ms QT Int : 416 ms P-R-T Axes : 023 -11 100 degrees QTc Int : 442 ms Poor data quality, interpretation may be adversely affected Normal sinus rhythm Left ventricular hypertrophy with repolarization abnormality ST elevation, consider inferior injury Inferior infarct (cited on or before 05-MAY-2021) Abnormal ECG When compared with ECG of 05-MAY-2021 12:20, No significant change was found Confirmed by Cuauhtemoc Larkin ([id number]) on 05/06/2021 10:20:48 PM Also confirmed by Cuauhtemoc Larkin ([id number]), news editor Helen Bahena ([id number]) on 05/17/2021 7:41:00 AM Referred By: REFERRED SELF Confirmed By:Cuauhtemoc Larkin
--- NOTE | 2021-05-17 14:57 | Electrocardiogram Report ---
Test Reason : Blood Pressure : / mmHG Vent. Rate : 051 BPM Atrial Rate : 051 BPM P-R Int : 166 ms QRS Dur : 086 ms QT Int : 470 ms P-R-T Axes : 045 002 106 degrees QTc Int : 433 ms Sinus bradycardia Cannot rule out Anterior infarct (cited on or before 05-MAY-2021) Inferolateral ST abnormality, consider ischemia Abnormal ECG When compared with ECG of 05-MAY-2021 12:20, Inferior ST abnormality not as pronounced Confirmed by Piotr Keenan ([id number]) on 05/17/2021 2:57:33 PM Referred By: REFERRED SELF Confirmed By:Piotr Keenan
== END 2021-05-08 11:36 | disposition home or self-care (01) | DRG 246 ==
LOC: ED 12:06 → CC 12:40 → 1E 13:12 → SUATTDRO 13:12

== ENCOUNTER 2021-06-10 12:47 | Observation (INO) ==
--- NOTE | 2021-06-10 14:34 | XRay Report ---
XR chest 1V portable HISTORY: 60 years-old Female weakness acute weakness COMPARISON: Chest radiograph 05/06/2021 TECHNIQUE: Portable AP view of the chest FINDINGS: Cardiac silhouette is enlarged. No pneumothorax, pleural effusion, airspace consolidation or overt pu lmonary edema. Unchanged mild linear scarring/atelectasis of the lateral left lung base. Degenerative changes of the shoulders and spine. IMPRESSION: Cardiomegaly without acute process. ACT 112: Negative or not required by law. The above report was generated using voice recognition software. It may contain grammatical, syntax o r spelling errors. Electronically signed by: Javy Garza M.D. 06/10/2021 2:33 PM
[2021-06-10 14:44] LABS: Basophils # (auto) 0.05 K/uL (0-0.2); Basophils % (auto) 0.5 %; Eosinophils # (auto) 0.54 K/uL (0-0.5); Eosinophils % (auto) 5.8 %; Hematocrit (blood only) 31.6 % (37-47); Hemoglobin 10.3 g/dL (12.0-16.0); Immature Granulocytes # (auto) 0.05 K/uL (0.00-0.02); Immature Granulocytes % (auto) 0.5 %; Lymphocytes # (auto) 2.53 K/uL (1.2-3.4); Lymphocytes % (auto) 27.2 %; Mean Corpuscular Hemoglobin 29.9 pg (25-34); Mean Corpuscular Hgb Conc 32.6 g/dL (32-36); Mean Corpuscular Volume 91.6 fL (80-100); Mean Platelet Volume 9.2 fL (7.4-10.4); Monocytes # (auto) 0.62 K/uL (0.11-0.59); Monocytes % (auto) 6.7 %; Neutrophils % (auto) 59.3 %; Platelet Count 367 K/uL (130-400); RDW Coefficient of Variation 13.3 % (11.5-14.5); RDW Standard Deviation 44.3 fL (36.4-46.3); Red Blood Count 3.45 M/uL (4.2-5.4); White Blood Count 9.29 K/uL (4.8-10.8)
[2021-06-10 14:54] LABS: Appearance Urine Clear (Clear); Bilirubin Urine Negative (Negative); Blood Urine Negative (Negative); Color Urine Yellow; Glucose Urine UA Negative (Negative); Ketones Urine Negative (Negative); Leukocyte Esterase Urine Negative (Negative); Nitrite Urine Negative (Negative); Protein Urine Negative (Negative); Specific Gravity Urine 1.007 (1.000-1.030); Urobilinogen Urine Negative (Negative); pH Urine 5.5 (4.5-7.5)
[2021-06-10 15:01] LABS: Alanine Aminotransferase 25 U/L (12-78); Albumin Level 3.3 gm/dl (3.4-5.0); Aspartate Aminotransferase 22 U/L (15-37); Blood Urea Nitrogen 28 mg/dl (7-18); Carbon Dioxide 24 mmol/L (21-32); Chloride 109 mmol/L (98-107); Creatinine Clr Calc Pharmacy 56.9 ml/min; Est GFR (African American) 47.4 ml/min; Est GFR (Non-African American) 40.9 ml/min; Glucose 100 mg/dl (70-99); Potassium 4.6 mmol/L (3.5-5.1); Sodium 138 mmol/L (136-145)
--- NOTE | 2021-06-10 15:02 | Emergency Department Note ---
Impression & Plan Right thalamic stroke ADMIT ED Provider Note HPI: The patient is a 60-year-old female with history of coronary artery disease, status post multiple stents about 1 month ago, on aspirin and Brilinta, presents the emergency department the chief complaint of left-sided facial numbness/tingling and left hand numbness/tingling that is been ongoing since yesterday afternoon. Patient states that yesterday afternoon about 24 hours ago she developed some symptoms of left-sided facial tingling and numbness below her left eye and around the left side of her mouth. She states that throughout the day she then developed some numbness and tingling in the distal aspect of her left upper extremity. Patient states that the symptoms persisted today and she notified her PCP of the symptoms and was referred to the emergency room for further management and to rule out an acute stroke. On arrival here to the ED the patient is in no acute distress, she is hemodynamically stable, she does not have any focal motor deficits, she states she still does have an abnormal sensory sensation on the left side of her face and left upper extremity. She is otherwise in no acute distress. ROS: -Neuro: Left-sided facial and upper extremity tingling/numbness *10 point review systems was conducted and is otherwise negative unless stated above *Outpatient medications and allergy history reviewed PE: General: Alert, NAD HEENT: Normocephalic, atraumatic, trachea midline Eyes: Extraocular eye movement is intact, no scleral erythema Pulmonary: Clear to auscultation bilaterally, no wheezing Cardio: Regular rate and rhythm GI: Abdomen is soft, nontender : No suprapubic tenderness MSK: No evidence of trauma or malformation of the extremities, no edema Skin: No evidence of rash Neuro: Alert, no drift of the upper extremities or lower extremities with testing against gravity is noted, patient has symmetrical facial movements, patient has no evidence of ataxia on urbqro-ec-weel testing bilaterally Psychiatric: Cooperative NIH STROKE SCALE: 1A: Level of consciousness Alert; keenly responsive 0 1B: Ask month and age Both questions right 0 1C: 'Blink eyes' & 'squeeze hands' Performs both tasks 0 2: Horizontal extraocular movements Normal 0 3: Visual nguyen No visual loss 0 4: Facial palsy Normal symmetry 0 5A: Left arm motor drift No drift for 10 seconds 0 5B: Right arm motor drift No drift for 10 seconds 0 6A: Left leg motor drift No drift for 5 seconds 0 6B: Right leg motor drift No drift for 5 seconds 0 7: Limb Ataxia No ataxia 0 8: Sensation Left-sided facial numbness/tingling +1 9: Language/aphasia Normal; no aphasia 0 10: Dysarthria Normal 0 11: Extinction/inattention No abnormality 0 TOTAL NIH SCORE = 1 patient monitor: An order was placed for continuous cardiac monitoring, patient is noted to be in sinus rhythm with a rate of 64 EKG: Rate: 57 Rhythm: Sinus bradycardia Intervals: Within normal limits ST changes: No ST elevation Time: 1416 Medical Decision Making: Patient presented to the emergency department with symptoms concerning for acute stroke with left-sided facial numbness as well as left upper extremity numbness. On arrival here to the ED she has an NIH stroke scale of 1 for her abnormal sensory sensation, she otherwise does not have any focal motor deficits and is in no acute distress. Lab work was obtained that shows baseline renal function and hemoglobin, troponin is negative x1, EKG does not show any ischemic changes. Patient denies any chest pain or shortness of breath. CT imaging of the head does not show any evidence of intracranial bleed or subacute stroke, I discussed the above findings with the patient she remains somewhat symptomatic with some left-sided numbness and tingling and therefore I did obtain MRI imaging of the brain that shows evidence of a 4 mm subacute stroke in the right thalamus. Patient was given a full dose aspirin, she is not considered a TPA candidate or candidate for any aggressive therapy given that her symptoms have been ongoing for about 24 hours now. On my reassessment she is resting comfortably in bed, she still does have an abnormal sensation on the left side of her face and in her left upper extremity in her hand and fingers but otherwise does not have any focal motor deficits or any progression of symptoms. Patient is in agreement for admission, case was discussed with the on-call midlevel provider for [facility] and the patient was accepted to the medicine service for further management and secondary stroke work-up. Patient was admitted in stable condition. * Diagnosis: Right-sided thalamic infarct * Disposition: Admission * CRITICAL CARE TIME: 35 min -Management and diagnosis of ischemic stroke requiring NIH stroke score to be obtained at the bedside, time spent at the bedside with history and physical exam, interpretation of diagnostic studies, discussion with other healthcare providers and arrangement of admission for secondary stroke work-up Robert Bialas, DO Emergency Medicine Past Med/Surg History Medical History HAL (generalized anxiety disorder) Hypertension Insulin dependent diabetes mellitus Mixed hyperlipidemia Surgical History History of right knee joint replacement History of tonsillectomy Social History (Updated 05/05/21 @ 18:30 by Margarita Pagan PA-C) Smoking Status: Former smoker Tobacco Type: Cigarettes Hx Alcohol Use: Yes Alcohol type: hard liquor Alcohol Intake Frequency: 2-4 x/Month Hx Substance Use: No Preferred Language: Malaysian Communication Ability: Effective Beliefs That Will Affect Care: None marital status: Current Living Situation: Family Feels Safe at Home: Yes Assistive Devices: None Allergies Allergies Allergy/AdvReac Type Severity Reaction Status Date / Time empagliflozin AdvReac Severe Heartburn Verified 06/10/21 16:07 [From [facility]] Home Meds Home Medications Medication Instructions Recorded Confirmed citalopram 20 mg tablet 20 mg PO DAILY 05/05/21 06/10/21 ezetimibe 10 mg tablet 10 mg PO HS 05/05/21 06/10/21 gabapentin 800 mg tablet 800 mg PO TID 05/05/21 06/10/21 insulin glargine 100 unit/mL (3 28 unit SUBCUT HS 05/05/21 06/10/21 mL) subcutaneous pen (Lantus Solostar U-100 Insulin) semaglutide (Ozempic) 0.5 mg SUBCUT FREGOSO@0900 05/05/21 06/10/21 metoprolol succinate 25 mg 12.5 mg PO DAILY 06/10/21 06/10/21 tablet,extended release 24 hr omeprazole 20 mg capsule,delayed 20 mg PO DAILY 06/10/21 06/10/21 release Previous Rx's Medication Instructions Recorded ticagrelor 90 mg tablet (Brilinta) 90 mg PO BID #30 tab 05/06/21 aspirin 81 mg tablet,delayed 81 mg PO QAM #30 tab 05/08/21 release lisinopril 10 mg tablet 10 mg PO HS #30 tab 05/08/21 rosuvastatin 20 mg tablet (Crestor) 20 mg PO QAM #30 tab 05/08/21 Results & Data (ED) Vital Signs Vital Signs - 24 hr 06/10/21 12:56 06/10/21 14:25 06/10/21 14:47 Temperature 36.6 C Temperature Source Skin Pulse Rate - Lying 65 Pulse Rate - Sitting 59 L Pulse Rate - Standing 54 L Pulse Rate 59 L Pulse Rhythm Regular Pulse Strength Normal Respiratory Rate 20 Respiratory Effort / Characteristics Non-Labored Spontaneous Respiratory Depth Normal Respiratory Pattern Regular Blood Pressure - Lying 180/75 H Blood Pressure - Sitting 191/92 H Blood Pressure- Standing 168/71 H Blood Pressure 182/79 H Blood Pressure [Right Arm] 168/71 H Blood Pressure Mean 113 Blood Pressure Mean [Right Arm] 103 Pulse Oximetry 100 Oxygen Delivery Method Room Air Sepsis Recent Fever Within 48 Hours No Sepsis New/Unexplained Change in Mental Status N/A Sepsis Action Taken by Nursing No Action Required Laboratory Data Result diagrams: 06/10/21 14:36 06/10/21 14:36 Lab Results 06/10/21 06/10/21 06/10/21 Range/Units 14:36 14:36 14:36 WBC 9.29 (4.8-10.8) K/uL RBC 3.45 L (4.2-5.4) M/uL Hgb 10.3 L (12.0-16.0) g/dL Hct 31.6 L (37-47) % MCV 91.6 (80-100) fL MCH 29.9 (25-34) pg MCHC 32.6 (32-36) g/dL RDW Std Deviation 44.3 (36.4-46.3) fL RDW Coeff of [place] 13.3 (11.5-14.5) % Plt Count 367 (130-400) K/uL MPV 9.2 (7.4-10.4) fL Immature Gran % (Auto) 0.5 % Neut % (Auto) 59.3 % Lymph % (Auto) 27.2 % [place] % (Auto) 6.7 % Eos % (Auto) 5.8 % Baso % (Auto) 0.5 % Neut # (Auto) 5.50 (1.4-6.5) K/uL Lymph # (Auto) 2.53 (1.2-3.4) K/uL [place] # (Auto) 0.62 H (0.11-0.59) K/uL Eos # (Auto) 0.54 H (0-0.5) K/uL Baso # (Auto) 0.05 (0-0.2) K/uL Immature Gran # (Auto) 0.05 H (0.00-0.02) K/uL Sodium 138 (136-145) mmol/L Potassium 4.6 (3.5-5.1) mmol/L Chloride 109 H (98-107) mmol/L Carbon Dioxide 24 (21-32) mmol/L Anion Gap 5.0 (3-11) BUN 28 H (7-18) mg/dl Creatinine 1.38 H (0.6-1.2) mg/dl Est Cr Clr Drug Dosing 56.9 ml/min Est GFR ( Amer) 47.4 ml/min Est GFR (Non-Af Amer) 40.9 ml/min BUN/Creatinine Ratio 20.0 (10-20) Glucose 100 H (70-99) mg/dl Calcium 9.0 (8.5-10.1) mg/dl Total Bilirubin 0.3 (0.2-1) mg/dl AST 22 (15-37) U/L ALT 25 (12-78) U/L Alkaline Phosphatase 83 (45-117) U/L Troponin I < 0.015 (0-0.045) ng/ml Total Protein 7.1 (6.4-8.2) gm/dl Albumin 3.3 L (3.4-5.0) gm/dl Globulin 3.8 (2.5-4.0) gm/dl Albumin/Globulin Ratio 0.9 (0.9-2) TSH 0.481 (0.300-4.500) uIu/ml Urine Color Yellow Urine Appearance Clear (Clear) Urine pH 5.5 (4.5-7.5) Ur Specific [place] 1.007 (1.000-1.030) Urine Protein Negative (Negative) Urine Glucose (UA) Negative (Negative) Urine Ketones Negative (Negative) Urine Blood Negative (Negative) Urine Nitrite Negative (Negative) Urine Bilirubin Negative (Negative) Urine Urobilinogen Negative (Negative) Ur Leukocyte Esterase Negative (Negative) Imaging Data Radiologist's Impression: Chest X-Ray 06/10/21 13:39 XR chest 1V portable HISTORY: 60 years-old Female weakness acute weakness COMPARISON: Chest radiograph 05/06/2021 TECHNIQUE: Portable AP view of the chest FINDINGS: Cardiac silhouette is enlarged. No pneumothorax, pleural effusion, airspace cons olidation or overt pulmonary edema. Unchanged mild linear scarring/atelectasis of the lateral left lung base. Degenerative changes of the shoulders and spine. IMPRESSION: Cardiomegaly without acute process. ACT 112: Negative or not required by law. The above report was generated using voice recognition software. It may contain grammatical, syntax or spelling errors. Electronically signed by: Javy Garza M.D. 06/10/2021 2:[address] 06/10/21 15:01 CT head/brain wo con CLINICAL HISTORY: L sided numbness Technique: Contiguous axial CT images of the head were acquired from the base of the skull to the vertex without intravenous contrast administration. Images were viewed in brain, subdural and bone windows. Automated dose lowering techniques and/or adjustment according to patient size were utilized for this exam. Comparison: None available at the time of this dictation. Findings: The ventricles, basal cisterns, and cerebral sulci are normal. There is no acute intracranial hemorrhage or evidence of acute territorial infarction. Neither mass effect, shift of the midline structures, nor abnormal extra-axial fluid collections are shown. Imaged portions of the paranasal sinuses and mastoid air cells are clear. The orbits appear normal. There are no acute fractures of the calvaria or scalp sw elling. Impression: No acute intracranial hemorrhage, no evidence of acute territorial infarction or other acute intracranial disease process. ACT 112: Negative or not required by law. Electronically signed by: Mahesh Ho M.D. 06/10/2021 3:39 PM Brain MRI 06/10/21 15:48 MRI OF THE BRAIN WITHOUT CONTRAST CLINICAL HISTORY: Left sided numbness on face and arm. COMPARISON STUDY: Head CT performed earlier today. TECHNIQUE: Utilizing a 1.5 Shana magnet and dedicated coil, multiplanar, multiecho imaging of the brain was performed without IV contrast. FINDINGS: There is a small 4 mm hyperintense focus within the right thalamus on axial diffusion-weighted sequence image . This is mildly hypointense on the ADC map. There is a corresponding T2 hyperintense focus on coronal FLAIR image . No additional foci of restricted diffusion are present. There is no mass effect. No hemorrhage. Ventricular system is unremarkable. Basal cisterns are patent. There are no extra-axial collections. Flow-voids for the major intracranial vessels are present. No intracranial masses identified on this unenhanced exam. White matter T2 hyperintense foci suggest small vessel disease. IMPRESSION: 4 mm acute to subacute infarct within the right thalamus. No mass effect. No hemorrhage. ACT 112: Negative or not required by law. Electronically signed by: Jay Posadas M.D. 06/10/2021 4:59 PM Discharge Plan Visit Data Chief Complaint: Facial Injury/Pain Stated Complaint: NUMBNESS IN FACE AND L HAND- DOC REF ED Provider: Robert Mijares Discharge Problem: Right thalamic stroke Forms Stand Alone Forms: My [facility] [email or web address] Prescriptions Prescriptions: No Action citalopram 20 mg tablet 20 mg PO DAILY RF: 0 gabapentin 800 mg tablet 800 mg PO TID RF: 0 ezetimibe 10 mg tablet 10 mg PO HS RF: 0 Lantus Solostar U-100 Insulin 100 unit/mL (3 mL) insulin pen 28 unit SUBCUT HS RF: 0 Ozempic 0.25 mg or 0.5 mg(2 mg/1.5 mL) Pen Injector 0.5 mg SUBCUT FREGOSO@0900 RF: 0 Brilinta 90 mg Tablet 90 mg PO BID Qty: 30 RF: 0 lisinopril 10 mg tablet 10 mg PO HS Qty: 30 RF: 0 rosuvastatin [Crestor] 20 mg Tablet 20 mg PO QAM Qty: 30 RF: 0 aspirin 81 mg Tablet,Delayed Release (Dr/Ec) 81 mg PO QAM Qty: 30 RF: 0 omeprazole 20 mg capsule,delayed release(DR/EC) 20 mg PO DAILY RF: 0 metoprolol succinate 25 mg tablet extended release 24 hr 12.5 mg PO DAILY RF: 0 Referrals Referrals: Sonido Bowles MD [Primary Care Provider] -
[2021-06-10 15:12] LABS: Albumin Globulin Ratio 0.9 (0.9-2); Alkaline Phosphatase 83 U/L (45-117); Bilirubin,Total 0.3 mg/dl (0.2-1); Globulin 3.8 gm/dl (2.5-4.0); Thyroid Stimulating Hormone 0.481 uIu/ml (0.300-4.500); Total Protein 7.1 gm/dl (6.4-8.2); Troponin I < 0.015 ng/ml (0-0.045)
--- NOTE | 2021-06-10 15:40 | CT Scan Report ---
CT head/brain wo con CLINICAL HISTORY: L sided numbness Technique: Contiguous axial CT images of the head were acquired from the base of the skull to the kalee leonarda without intravenous contrast administration. Images were viewed in brain, subdural and bone [facility] ws. Automated dose lowering techniques and/or adjustment according to patient size were utilized for this exam. Comparison: None available at the time of this dictation. Findings: The ventricles, basal cisterns, and cerebral sulci are normal. There is no acute intracranial hemorrh age or evidence of acute territorial infarction. Neither mass effect, shift of the midline structures , nor abnormal extra-axial fluid collections are shown. Imaged portions of the paranasal sinuses and mastoid air cells are clear. The orbits appear normal. There are no acute fractures of the calvaria or scalp swelling. Impression: No acute intracranial hemorrhage, no evidence of acute territorial infarction or other acute intracra nial disease process. ACT 112: Negative or not required by law. Electronically signed by: Mahesh Ho M.D. 06/10/2021 3:39 PM
--- NOTE | 2021-06-10 17:00 | Magnetic Resonance Report ---
MRI OF THE BRAIN WITHOUT CONTRAST CLINICAL HISTORY: Left sided numbness on face and arm. COMPARISON STUDY: Head CT performed earlier today. TECHNIQUE: Utilizing a 1.5 Shana magnet and dedicated coil, multiplanar, multiecho imaging of the bra in was performed without IV contrast. FINDINGS: There is a small 4 mm hyperintense focus within the right thalamus on axial diffusion-weigh lyndon sequence image of . This is mildly hypointense on the ADC map. There is a corresponding T2 h yperintense focus on coronal FLAIR image . No additional foci of restricted diffusion are pre sent. There is no mass effect. No hemorrhage. Ventricular system is unremarkable. Basal cisterns are patent. There are no extra-axial collections. Flow-voids for the major intracranial vessels are prese nt. No intracranial masses identified on this unenhanced exam. White matter T2 hyperintense foci sugg est small vessel disease. IMPRESSION: 4 mm acute to subacute infarct within the right thalamus. No mass effect. No hemorrhage. ACT 112: Negative or not required by law. Electronically signed by: Jay Posadas M.D. 06/10/2021 4:59 PM
[2021-06-10] MEDS ORDERED: ASPIRIN CHEW 324 MG PO STA (17:36)
--- NOTE | 2021-06-10 18:17 | History & Physical Report ---
Date of Service June 10, 2021 Assessment & Plan (1) Right thalamic stroke: Plan: Patient is 60-year-old female with PMH CAD s/p 3 BUFFY on 05/05/2021 after ischemia induced stress test, HTN, HLD, insulin dependent DM II, CKD III, anxiety presented to ER with complaint of left face and left finger numbness x 1 day. In ER patient afebrile, P: 59, R: 20, BP 182/79, 100% on room air. No significant electrolyte abnormality, TSH: 0.48, negative troponin CT head without contrast no acute intracranial abnormality. MRI brain without contrast: 4mm acute to subacute infarct within the right thalamus. No mass effect. No hemorrhage. -Tele to monitor for arrhythmias -A1c 6.1 04/27/2021 -05/27/21 lipid panel: Total cholesterol 118, LDL: 45, HDL: 43, triglycerides: 160 -05/05/2021: Ischemic dobutamine stress, EF: 45-50%, grade 1 diastolic dysf unction, no significant valvular pathology -U/S carotids -echo with bubble study -aspiration precautions -PT/OT consult -Continue rosuvastatin -Continue aspirin, Brillinta -allow permissive HTN, may need to further adjust meds -neurology consult (2) CAD (coronary artery disease): Plan: S/p BUFFY RCA, BUFFY ostial right PDA, BUFFY distal right PLB on 05/05/2021 No chest pain or shortness of breath. EKG without acute changes -Continue aspirin, Brilinta, Crestor, metoprolol succinate (3) Insulin dependent diabetes mellitus: Plan: A1c: 6.9 on 04/27/2021 -Hold Ozempic and home Lantus -Basal bolus insulin per protocol (4) Hypertension: Plan: -Continue lisinopril 10mg daily (has not been titrated secondary to recent outpatient potassium upper limits). Today K: 4.6 -Continue metoprolol succinate 25mg daily (was recently increased from 12.5mg to 25mg (5) Mixed hyperlipidemia: Plan: -05/27/21 lipid panel: Total cholesterol 118, LDL: 45, HDL: 43, triglycerides: 160 -Continue Crestor, Zetia (6) CKD (chronic kidney disease), stage III: Plan: Cr: 1.38. Baseline ~1.2 -Monitor renal functions (7) HAL (generalized anxiety disorder): Plan: -Continue citalopram DVT Prophylaxis -SCDs Full Code as per discussion with pt Follows with Dr Bowles for routine care Pt was seen and care coordinated with Dr Singleton. See addendum History of Present Illness Chief Complaint: Left-sided numbness Primary Care Provider: Sonido Bowles MD Patient is 60-year-old female with PMH CAD s/p 3 BUFFY on 05/05/2021 after ischemia induced stress test, HTN, HLD, insulin dependent DM II, CKD III, anxiety presented to ER with complaint of left face and left finger numbness x 1 day. Patient states yesterday morning woke up and noticed left side of nose and left cheek had decreased sensation as well as her left fingertips. Symptoms still present today so went to PCP and was referred to ER. Denies fever/chills, diaphoresis, N/V/D/C, MARINO, dizziness, syncope, vision changes, neck pain, CP, SOB, orthopnea, palpitations, cough, sore throat, choking, otalgia, rhinorrhea, abdominal pain, other paresthesias, weakness, extremity weakness, extremity edema, rashes, urinary symptoms. In ER patient afebrile, P: 59, R: 20, BP 182/79, 100% on room air. CT head without contrast no acute intracranial abnormality. MRI brain without contrast: 4mm acute to subacute infarct within the right thalamus. No mass effect. No hemorrhage. Allergies Allergy/AdvReac Type Severity Reaction Status Date / Time empagliflozin AdvReac Severe Heartburn Verified 06/10/21 16:07 [From Jardiance] Home Medications Medication Instructions Recorded Confirmed Type citalopram 20 mg tablet 20 mg PO DAILY 05/05/21 06/10/21 History ezetimibe 10 mg tablet 10 mg PO HS 05/05/21 06/10/21 History gabapentin 800 mg tablet 800 mg PO TID 05/05/21 06/10/21 History insulin glargine 100 unit/mL (3 28 unit SUBCUT HS 05/05/21 06/10/21 History mL) subcutaneous pen (Lantus Solostar U-100 Insulin) semaglutide (Ozempic) 0.5 mg SUBCUT FREGOSO@0900 05/05/21 06/10/21 History ticagrelor 90 mg tablet (Brilinta) 90 mg PO BID #30 tab 05/06/21 06/10/21 Rx aspirin 81 mg tablet,delayed 81 mg PO QAM #30 tab 05/08/21 06/10/21 Rx release lisinopril 10 mg tablet 10 mg PO HS #30 tab 05/08/21 06/10/21 Rx rosuvastatin 20 mg tablet (Crestor) 20 mg PO QAM #30 tab 05/08/21 06/10/21 Rx metoprolol succinate 25 mg 25 mg PO DAILY 06/10/21 06/10/21 History tablet,extended release 24 hr omeprazole 20 mg capsule,delayed 20 mg PO DAILY 06/10/21 06/10/21 History release Past Med/Surg History Medical History CAD (coronary artery disease) CKD (chronic kidney disease), stage III HAL (generalized anxiety disorder) Hypertension Insulin dependent diabetes mellitus Mixed hyperlipidemia Surgical History History of right knee joint replacement History of tonsillectomy Family History (Updated 06/10/21 @ 19:09 by Shyanne Sierra PA-C) Other Coronary heart disease Diabetes Stroke Social History Smoking Status: Former smoker Tobacco Type: Cigarettes Hx Alcohol Use: Yes Alcohol type: hard liquor Alcohol Intake Frequency: 2-4 x/Month Hx Substance Use: No Preferred Language: Andorran Communication Ability: Effective Beliefs That Will Affect Care: None marital status: Current Living Situation: Family Feels Safe at Home: Yes Assistive Devices: None Review of Systems Review of Systems: All systems reviewed & are unremarkable except as noted in HPI & below Physical Exam Physical Exam: General: no distress, obese Head: normocephalic, atraumatic Eyes: PERRL, EOM's intact, conjunctiva non-injected, anicteric ENT: normal inspection external ears, nose, mucous membranes moist Neck: supple, trachea midline Lungs: clear, no respiratory distress, no wheezing/rhonchi/rales CV: RRR, no murmur, no pretibial edema Abd: normal BS, soft, non-tender Ext: no cyanosis, no calf tenderness Neuro: A&O x 3, normal affect, visual nguyen intact. PERRL, EOMs intact. No nystagmus, Slightly decreased sensation over left cheek, otherwise sensation intact and symmetric, The face is strong and symmetric, Hearing grossly intact, soft palate elevates symmetrically, no dysarthria, Shoulder shrug intact, Tongue is midline, normal movement, no fasciculations Muscle tone normal. Skin: warm, dry Results & Data Results & Data ([facility]) Vital Signs (Past 12 Hours) Vital Signs Temp Pulse Resp BP BP Pulse Ox 06/10/21 14:47 168/71 H 06/10/21 12:56 36.6 C 59 L 20 182/79 H 100 Laboratory Results Short CBC 06/10/21 Range/Units 14:36 WBC 9.29 (4.8-10.8) K/uL Hgb 10.3 L (12.0-16.0) g/dL Hct 31.6 L (37-47) % Plt Count 367 (130-400) K/uL BMP 06/10/21 14:36 Sodium 138 Potassium 4.6 Chloride 109 H Carbon Dioxide 24 BUN 28 H Creatinine 1.38 H Glucose 100 H Calcium 9.0 Cardiac Enzymes 06/10/21 Range/Units 14:36 Troponin I < 0.015 (0-0.045) ng/ml Liver Function 06/10/21 Range/Units 14:36 Total Bilirubin 0.3 (0.2-1) mg/dl AST 22 (15-37) U/L ALT 25 (12-78) U/L Alkaline Phosphatase 83 (45-117) U/L Albumin 3.3 L (3.4-5.0) gm/dl Urine 06/10/21 Range/Units 14:36 Urine Color Yellow Urine Appearance Clear (Clear) Urine pH 5.5 (4.5-7.5) Ur Specific [place] 1.007 (1.000-1.030) Urine Protein Negative (Negative) Urine Glucose (UA) Negative (Negative) Diagnostic Findings Chest X-Ray 06/10/21 13:39 XR chest 1V portable HISTORY: 60 years-old Female weakness acute weakness COMPARISON: Chest radiograph 05/06/2021 TECHNIQUE: Portable AP view of the chest FINDINGS: Cardiac silhouette is enlarged. No pneumothorax, pleural effusion, airspace consolidation or overt pulmonary edema. Unchanged mild linear scarring/atelectasis of the lateral left lung base. Degenerative changes of the shoulders and spine. IMPRESSION: Cardiomegaly without acute process. ACT 112: Negative or not required by law. The above report was generated using voice recognition software. It may contain grammatical, syntax or spelling errors. Electronically signed by: Javy Garza M.D. 06/10/2021 2:[address] 06/10/21 15:01 CT head/brain wo con CLINICAL HISTORY: L sided numbness Technique: Contiguous axial CT images of the head were acquired from the base of the skull to the vertex without intravenous contrast administration. Images were viewed in brain, subdural and bone windows. Automated dose lowering techniques and/or adjustment according to patient size were utilized for this exam. Comparison: None available at the time of this dictation. Findings: The ventricles, basal cisterns, and cerebral sulci are normal. There is no acute intracranial hemorrhage or evidence of acute territorial infarction. Neither mass effect, shift of the midline structures, nor abnormal extra-axial fluid collections are shown. Imaged portions of the paranasal sinuses and mastoid air cells are clear. The orbits appear normal. There are no acute fractures of the calvaria or scalp swelling. Impression: No acute intracranial hemorrhage, no evidence of acute territorial infarction or other acute intracranial disease process. ACT 112: Negative or not required by law. Electronically signed by: Mahesh Ho M.D. 06/10/2021 3:39 PM Brain MRI 06/10/21 15:48 MRI OF THE BRAIN WITHOUT CONTRAST CLINICAL HISTORY: Left sided numbness on face and arm. COMPARISON STUDY: Head CT performed earlier today. TECHNIQUE: Utilizing a 1.5 Shana magnet and dedicated coil, multiplanar, multiecho imaging of the brain was performed without IV contrast. FINDINGS: There is a small 4 mm hyperintense focus within the right thalamus on axial diffusion-weighted sequence image . This is mildly hypointense on the ADC map. There is a corresponding T2 hyperintense focus on coronal FLAIR image . No additional foci of restricted diffusion are present. There is no mass effect. No hemorrhage. Ventricular system is unremarkable. Basal cisterns are patent. There are no extra-axial collections. Flow-voids for the major intracranial vessels are present. No intracranial masses identified on this unenhanced exam. White matter T2 hyperintense foci suggest small vessel disease. IMPRESSION: 4 mm acute to subacute infarct within the right thalamus. No mass effect. No hemorrhage. ACT 112: Negative or not required by law. Electronically signed by: Jay Posadas M.D. 06/10/2021 4:59 PM Code Status & VTE Plan VTE Prophylaxis Plan VTE Prophylaxis will be ordered: Yes Supervising Physician Co-Signing Physician Notes I have seen and examined the patient and have discussed the case with the provider above. I agree with the assessment and plan as stated. 60 yo F presented with stroke like symptoms including left mid face numbness and tingling in all fingertips. She is notably a diabetic with recently discovered coronary artery disease who is now on statin and DAPT therapy. Workup reveals a right thalamic stroke on MRI, likely from the same mechanism that caused her heart disease. No history of arrhythmia. Patient feels her facial numbness is improving and denies headache, speech issues, swallowing issues, balance issues and has no issue with memory or word-finding. Denies any dizziness. There is no other sensorimotor deficit outside of chronic neuropathic numbness on her feet bilaterally from diabetes. She is a nonsmoker. My physical exam is consistent with that above and strength intact throughout all limbs. 2/4 DTR at knees bilaterally. +horizontal nystagmus when looking to the left. Agree with neuro consult and continued workup listed above. Cont with DAPT and statin therapy per home regimen and allow permissive hypertension for another 24 hours, treating if >220/110. With her current deficit, she should likely be discharged home tomorrow after completion of workup and neurology evaluation. DO Mani
[2021-06-10] MEDS ORDERED: ACETAMINOPHEN 325 MG TAB PO PRN (21:51)
[2021-06-10] MEDS ORDERED: GLUCOSE 10 TABS/TUBE PO PRN (21:51)
[2021-06-10] MEDS ORDERED: DEXTROSE 50% 50 ML SYRINGE IV PRN (21:51)
[2021-06-10] MEDS ORDERED: CARBOHYDRATES FOR HYPOGLYCEMIA PO PRN (21:51)
[2021-06-10] MEDS ORDERED: GLUCAGON FOR INJ 1 MG VIAL SQ PRN (21:51)
[2021-06-10] MEDS ORDERED: GLUCOSE 40% GEL 15 GM TUBE PO PRN (21:51)
[2021-06-10] MEDS ORDERED: PHARMACIST DISCHARGE MED REC CONSULT PRN (21:51)
[2021-06-10] MEDS ORDERED: EZETIMIBE 10 MG TABLET PO SCH (22:00)
[2021-06-10] MEDS ORDERED: lisinopril 10 MG TAB PO SCH (22:00)
[2021-06-10] MEDS: INSULIN ASPART 100 UNITS/ML 3 ML PEN SC SCH (22:54)
[2021-06-10] MEDS: INSULIN GLARGINE SOLOSTAR 100 UNITS/ML 3 ML PEN SC SCH (22:54)
[2021-06-10] MEDS: TICAGRELOR 90 MG TAB PO SCH (22:55)
[2021-06-10] MEDS: GABAPENTIN 800 MG TAB PO SCH (22:55)
[2021-06-11 06:21] LABS: Basophils # (auto) 0.04 K/uL (0-0.2); Basophils % (auto) 0.4 %; Eosinophils # (auto) 0.64 K/uL (0-0.5); Eosinophils % (auto) 7.1 %; Hematocrit (blood only) 30.6 % (37-47); Hemoglobin 9.9 g/dL (12.0-16.0); Immature Granulocytes # (auto) 0.05 K/uL (0.00-0.02); Immature Granulocytes % (auto) 0.6 %; Lymphocytes % (auto) 30.9 %; Mean Corpuscular Hemoglobin 29.6 pg (25-34); Mean Corpuscular Hgb Conc 32.4 g/dL (32-36); Mean Corpuscular Volume 91.6 fL (80-100); Mean Platelet Volume 9.2 fL (7.4-10.4); Monocytes # (auto) 0.63 K/uL (0.11-0.59); Monocytes % (auto) 6.9 %; Neutrophils # (auto) 4.91 K/uL (1.4-6.5); Neutrophils % (auto) 54.1 %; Platelet Count 338 K/uL (130-400); RDW Coefficient of Variation 13.4 % (11.5-14.5); RDW Standard Deviation 44.7 fL (36.4-46.3); Red Blood Count 3.34 M/uL (4.2-5.4); White Blood Count 9.07 K/uL (4.8-10.8)
[2021-06-11 07:00] LABS: BUN Creatinine Ratio 19.3 (10-20); Creatinine Clr Calc Pharmacy 67.5 ml/min; Est GFR (African American) 59.1 ml/min; Potassium 4.2 mmol/L (3.5-5.1)
--- NOTE | 2021-06-11 07:00 | Electrocardiogram Report ---
Test Reason : Blood Pressure : / mmHG Vent. Rate : 057 BPM Atrial Rate : 057 BPM P-R Int : 162 ms QRS Dur : 100 ms QT Int : 430 ms P-R-T Axes : 022 -18 086 degrees QTc Int : 418 ms Sinus bradycardia Left ventricular hypertrophy with repolarization abnormality Inferior infarct (cited on or before 05-MAY-2021) Abnormal ECG When compared with ECG of 06-MAY-2021 05:41, No significant change was found Confirmed by Cuauhtemoc Larkin ([id number]) on 06/11/2021 7:00:37 AM Referred By: Confirmed By:Cuauhtemoc Larkin
[2021-06-11] MEDS ORDERED: Influenza Vaccine (Fluarix) 0.5 ML SYR (Standard Dose) IM ONE (08:00)
[2021-06-11] MEDS: GABAPENTIN 800 MG TAB PO SCH ×2 (08:18→13:57)
[2021-06-11] MEDS ORDERED: PANTOprazole 40 MG TAB PO SCH (09:00)
[2021-06-11] MEDS ORDERED: CITALOPRAM 20 MG TAB PO SCH (09:00)
[2021-06-11] MEDS ORDERED: ASPIRIN 81 MG ECTAB PO SCH (09:00)
[2021-06-11] MEDS ORDERED: METOPROLOL SUCC 25MG EXT REL TAB PO SCH (09:00)
[2021-06-11] MEDS ORDERED: ROSUVASTATIN CALCIUM 20 MG TAB PO SCH (09:00)
[2021-06-11] MEDS: INSULIN ASPART 100 UNITS/ML 3 ML PEN SC SCH ×2 (09:57→12:31)
[2021-06-11] MEDS: TICAGRELOR 90 MG TAB PO SCH (09:57)
[2021-06-11] MEDS: INSULIN GLARGINE SOLOSTAR 100 UNITS/ML 3 ML PEN SC SCH (09:58)
--- NOTE | 2021-06-11 10:52 | Ultrasound Report ---
US carotid doppler BI CLINICAL HISTORY: 60 years-old Female with cva. Acute strokelike symptoms COMPARISON: Brain MRI 06/10/2021 TECHNIQUE: Multiple real time sonographic images of the carotid bifurcations were obtained assessing szymanski scale, color Doppler and spectral wave form appearance FINDINGS: RIGHT CAROTID: The peak systolic velocity measured within the right ICA is223 cm/sec. The end diast olic velocity measured 48 cm/sec. The ICA to CCA ratio measured 2.9 which correlates with a stenosis of 50-69%. Moderate atherosclerotic plaque of the carotid bulb. Turbulent flow within the carotid bu lb. LEFT CAROTID: The peak systolic velocity measured within the left ICA is91 cm/sec. The end diastoli c velocity measured 24 cm/sec. The ICA to CCA ratio measured 1.0 which correlates with a stenosis of 0-50%. Moderate atherosclerotic plaque of the carotid bulb and proximal ICA. There is normal antegrade vertebral flow bilaterally. Blood pressure on the right is measured at 130/ 71 and on the left is measured at 122/65. IMPRESSION: 1. Moderate atherosclerotic plaque of the carotid bulbs results in 50-69% stenosis of the proximal r ight ICA and less than 50% stenosis on the left. 2. Normal antegrade vertebral flow bilaterally. ACT 112: Negative or not required by law. The above report was generated using voice recognition software. It may contain grammatical, syntax o r spelling errors. Electronically signed by: Javy Garza M.D. 06/11/2021 10:51 AM
--- NOTE | 2021-06-11 13:35 | Hospitalist Progress Note ---
Date of Service June 11, 2021 Assessment & Plan (1) Right thalamic stroke: Plan: Patient is 60-year-old female with PMH CAD s/p 3 BUFFY on 05/05/2021 after ischemia induced stress test, HTN, HLD, insulin dependent DM II, CKD III, anxiety presented to ER with complaint of left face and left finger numbness x 1 day. Acute right thalamic CVA --MRI Brain:4 mm acute to subacute infarct within the right thalamus. No mass effect. No hemorrhage. --Carotid USD:Moderate atherosclerotic plaque of the carotid bulbs results in 50-69% stenosis of the proximal right ICA and less than 50% stenosis on the left. Normal antegrade vertebral flow bilaterally. --ECHO pending --LDL:44 --Monitor for arrhythmias -A1c 6.1 04/27/2021 Continue aspirin, Brilinta, rosuvastatin Neurology consulted PT OT evaluation (2) CAD (coronary artery disease): Plan: S/p BUFFY RCA, BUFFY ostial right PDA, BUFFY distal right PLB on 05/05/2021 Continue aspirin, Brilinta, Crestor, metoprolol succinate (3) Insulin dependent diabetes mellitus: Plan: A1c: 6.9 on 04/27/2021 Hold Ozempic and home Lantus Continue Basal bolus insulin per protocol (4) Hypertension: Plan: -Continue lisinopril 10mg daily (has not been titrated secondary to recent outpatient potassium upper limits). Today K: 4.6 -Continue metoprolol succinate 25mg daily (was recently increased from 12.5mg to 25mg (5) Mixed hyperlipidemia: Plan: -05/27/21 lipid panel: Total cholesterol 118, LDL: 45, HDL: 43, triglycerides: 160 -Continue Crestor, Zetia (6) CKD (chronic kidney disease), stage III: Plan: Baseline ~1.2 Monitor renal functions Cr 1.1 today (7) HAL (generalized anxiety disorder): Plan: -Continue citalopram DVT Prophylaxis -SCDs Code Status Full Code Admission and Anticipated Discharge Date Admission Date: June 10, 2021 Subjective Patient is seen and examined bedside States having persistent left facial, left finger numbness Denies any focal weakness Also denies any chest pain, shortness breath, dizziness, nausea, abdominal pain Review of Systems Review of Systems: All systems reviewed & are unremarkable except as noted in Subjective Physical Exam Physical Exam: Physical Exam: Vitals signs as noted above General Appearance:Morbidly Obese, no apparent distress Head: normocephalic, Atraumatic Eyes: normal inspection, EOMI Neck: supple, Trachea midline Respiratory/Chest: Normal breath sounds, CTA Cardiovascular: S1, S2, No murmur Abdomen/GI:Soft, Non tender, Bowel sounds present Extremities/Musculoskeletal:normal inspection, no edema Neurologic/Psych:AAOX3, grossly no focal neurological deficits Skin: normal color, warm Results & Data Results & Data ([facility]) Vital Signs (Past 12 Hours) Vital Signs Temp Pulse Pulse Resp BP Pulse Ox 06/11/21 12:00 36.7 C 54 L 18 145/67 H 96 06/11/21 08:00 56 L 06/11/21 07:44 36.9 C 63 18 156/74 H 97 06/11/21 04:13 37.0 C 63 16 122/65 97 Laboratory Results Short CBC 06/10/21 06/11/21 Range/Units 14:36 05:40 WBC 9.29 9.07 (4.8-10.8) K/uL Hgb 10.3 L 9.9 L (12.0-16.0) g/dL Hct 31.6 L 30.6 L (37-47) % Plt Count 367 338 (130-400) K/uL BMP 06/10/21 06/11/21 14:36 05:40 Sodium 138 141 Potassium 4.6 4.2 Chloride 109 H 112 H Carbon Dioxide 24 23 BUN 28 H 22 H Creatinine 1.38 H 1.15 Glucose 100 H 116 H Calcium 9.0 9.0 Cardiac Enzymes 06/10/21 Range/Units 14:36 Troponin I < 0.015 (0-0.045) ng/ml Liver Function 06/10/21 Range/Units 14:36 Total Bilirubin 0.3 (0.2-1) mg/dl AST 22 (15-37) U/L ALT 25 (12-78) U/L Alkaline Phosphatase 83 (45-117) U/L Albumin 3.3 L (3.4-5.0) gm/dl Urine 06/10/21 Range/Units 14:36 Urine Color Yellow Urine Appearance Clear (Clear) Urine pH 5.5 (4.5-7.5) Ur Specific [place] 1.007 (1.000-1.030) Urine Protein Negative (Negative) Urine Glucose (UA) Negative (Negative)
--- NOTE | 2021-06-11 13:37 | Consultation Report ---
NEUROLOGY CONSULTATION NOTE DATE OF CONSULTATION: 06/11/2021 CHIEF COMPLAINT: Left-sided numbness. 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 The patient woke up on morning and noticed the left side of her nose and left cheek had decr eased sensation as well as her left fingertips. Symptoms were present on Sunday, so she went to her PCP and then was further referred to the Emergency Department. She had no fever, chills, nausea, vom iting, diarrhea, headache, dizziness, syncope, or vision changes. She had no chest pain or shortness of breath. Upon arrival in the ER, her vital signs were stable, although her blood pressure was rafael vated at 182/79. Her CT head noncontrast showed no acute intracranial abnormality. An MRI of the br ain was further performed and showed a 4 mm acute to subacute infarct within the right thalamus. The patient was admitted for further evaluation. Neurology was consulted upon admission. ALLERGIES: EMPAGLIFLOZIN. HOME MEDICATIONS: Citalopram, Zetia, gabapentin, insulin, Ozempic, ticagrelor or Brilinta, aspirin, lisinopril, rosuvastatin, metoprolol, omeprazole. PAST MEDICAL HISTORY: Coronary artery disease, chronic kidney disease, generalized anxiety, hyperten armani, type 2 diabetes, hyperlipidemia. PAST SURGICAL HISTORY: Right knee replacement, percutaneous coronary intervention, tonsillectomy. FAMILY HISTORY: Includes coronary artery disease, diabetes, and stroke. SOCIAL HISTORY: She is a former smoker. She drinks alcohol 2-4 times per month. She is . REVIEW OF SYSTEMS: All other review of systems except for left-sided numbness were negative. PHYSICAL EXAMINATION: VITAL SIGNS: Blood pressure 145/67, pulse is 54, respiratory rate is 18, temperature is 36.7 degrees Celsius, oxygen saturation is 96% on room air. GENERAL: The patient appears her stated age, in no distress. HEENT: Normal eyelids. Normal conjunctivae. Head is normocephalic and atraumatic. NECK: Supple, normal respiratory effort. CARDIAC: Pulses are normal. ABDOMEN: Nondistended. SKIN: She has no skin rash. PSYCHIATRIC: Normal mood. NEUROLOGIC: She is awake, alert, oriented to person, place, and time. Attention is normal. Knowled ge is appropriate. Comprehension is intact. Speech is clear. Pupils are symmetric. Extraocular mu scles are intact. Facial sensation intact. No facial asymmetry. Intact hearing. Palate is symmetr ic. Good shoulder shrug. Tongue is midline. Gait evaluation deferred. No ataxia with [id number] testing. Sensation is reduced to light touch on the left side. Muscle tone is normal. Muscle st rength testing reveals no focal weakness. Reflexes show negative Ruthy sign and no ankle clonus. DIAGNOSTIC TESTING AND LABORATORY VALUES: WBC 9.07, hemoglobin 9.9, platelet count is 338. INR is 1 .0. Sodium 141, potassium 4.2, chloride 102, BUN 22, creatinine 1.15, glucose 116, triglycerides are elevated at 189, LDL cholesterol is 44. TSH is normal at 0.481. Urinalysis was clear with no evide nce of urinary tract infection. MRI of the brain showed a 4 mm acute to subacute infarct within the right thalamus. No mass, no hemorrhage. Carotid ultrasound showed moderate atherosclerotic plaque o f the carotid bulbs resulted in 50%-69% stenosis of the proximal right ICA and less than 50% stenosis on the left. Head CT noncontrast showed no acute intracranial abnormality. No evidence of acute te rritorial infarction or other acute intracranial disease process. Transthoracic echocardiogram is pe nding. ASSESSMENT AND PLAN: A 60-year-old woman with multiple stroke risk factors including insulin-depende nt diabetes, hypertension, hyperlipidemia as well as coronary artery disease, on Brilinta and aspirin , admitted with an acute to subacute right thalamic stroke resulting in left-sided numbness or decrea sed sensation. Location of the stroke is subcortical and suggestive of small vessel ischemic disease . Risk factors certainly include hypertension, chronic kidney disease as well as insulin-dependent d iabetes. I would recommend to continue current dose of aspirin as well as Brilinta. We would obtain a hemoglobin A1c if not already performed. Goal hemoglobin A1c less than 7. LDL cholesterol is les s than 70. Would recommend increasing Crestor to 40 mg daily. Systolic blood pressure goal is less than 140, diastolic blood pressure goal is less than 90. We would obtain a transthoracic echocardiog michelle. Physical therapy and occupational therapy for any rehabilitation needs. Recommend the patient to follow up with neurology as an outpatient in 8 weeks. Job ID: [id number]
[2021-06-11] MEDS ORDERED: STROKE PATIENT DISCHARGE STA (13:54)
--- NOTE | 2021-06-11 13:57 | Discharge Summary ---
Date of Service June 11, 2021 Admission HPI Per Admitting Provider Patient is 60-year-old female with PMH CAD s/p 3 BUFFY on 05/05/2021 after ischemia induced stress test, HTN, HLD, insulin dependent DM II, CKD III, anxiety presented to ER with complaint of left face and left finger numbness x 1 day. Patient states yesterday morning woke up and noticed left side of nose and left cheek had decreased sensation as well as her left fingertips. Symptoms still present today so went to PCP and was referred to ER. Denies fever/chills, diaphoresis, N/V/D/C, MARINO, dizziness, syncope, vision changes, neck pain, CP, SOB, orthopnea, palpitations, cough, sore throat, choking, otalgia, rhinorrhea, abdominal pain, other paresthesias, weakness, extremity weakness, extremity edema, rashes, urinary symptoms. In ER patient afebrile, P: 59, R: 20, BP 182/79, 100% on room air. CT head without contrast no acute intracranial abnormality. MRI brain without contrast: 4mm acute to subacute infarct within the right thalamus. No mass effect. No hemorrhage. Admission Exam Per Admitting Provider Physical Exam Physical Exam: General: no distress, obese Head: normocephalic, atraumatic Eyes: PERRL, EOM's intact, conjunctiva non-injected, anicteric ENT: normal inspection external ears, nose, mucous membranes moist Neck: supple, trachea midline Lungs: clear, no respiratory distress, no wheezing/rhonchi/rales CV: RRR, no murmur, no pretibial edema Abd: normal BS, soft, non-tender Ext: no cyanosis, no calf tenderness Neuro: A&O x 3, normal affect, visual nguyen intact. PERRL, EOMs intact. No nystagmus, Slightly decreased sensation over left cheek, otherwise sensation intact and symmetric, The face is strong and symmetric, Hearing grossly intact, soft palate elevates symmetrically, no dysarthria, Shoulder shrug intact, Tongue is midline, normal movement, no fasciculations Muscle tone normal. Skin: warm, dry Principal Diagnosis Acute right thalamic Stroke Discharge Data Allergies Allergy/AdvReac Type Severity Reaction Status Date / Time empagliflozin AdvReac Severe Heartburn Verified 06/10/21 16:07 [From Vamshi] Consultations 06/10/21 17:58 ED Decision to Admit Stat 06/10/21 21:51 Consult Neurology Routine Ordered Studies 06/10/21 15:01 CT head/brain wo con Stat 06/10/21 15:48 MR brain wo con Stat 06/11/21 21:51 US carotid doppler BI Routine Hospital Course (1) Right thalamic stroke: Patient is 60-year-old female with PMH CAD s/p 3 BUFFY on 05/05/2021 after ischemia induced stress test, HTN, HLD, insulin dependent DM II, CKD III, anxiety presented to ER with complaint of left face and left finger numbness x 1 day. Acute right thalamic CVA --MRI Brain:4 mm acute to subacute infarct within the right thalamus. No mass effect. No hemorrhage. --Carotid USD:Moderate atherosclerotic plaque of the carotid bulbs results in 50-69% stenosis of the proximal right ICA and less than 50% stenosis on the left. Normal antegrade vertebral flow bilaterally. --ECHO pending --LDL:44 --Monitor for arrhythmias -A1c 6.1 04/27/2021 Continue aspirin, Brilinta, rosuvastatin Neurology consulted PT OT evaluation (2) CAD (coronary artery disease): S/p BUFFY RCA, BUFFY ostial right PDA, BUFFY distal right PLB on 05/05/2021 Continue aspirin, Brilinta, Crestor, metoprolol succinate (3) Insulin dependent diabetes mellitus: A1c: 6.9 on 04/27/2021 Hold Ozempic and home Lantus Continue Basal bolus insulin per protocol (4) Hypertension: -Continue lisinopril 10mg daily (has not been titrated secondary to recent outpatient potassium upper limits). Today K: 4.6 -Continue metoprolol succinate 25mg daily (was recently increased from 12.5mg to 25mg (5) Mixed hyperlipidemia: -05/27/21 lipid panel: Total cholesterol 118, LDL: 45, HDL: 43, triglycerides: 160 -Continue Crestor, Zetia (6) CKD (chronic kidney disease), stage III: Baseline ~1.2 Monitor renal functions Cr 1.1 today (7) HAL (generalized anxiety disorder): -Continue citalopram DVT Prophylaxis -SCDs Code Status Full Code Total Time Total Time Spent Total Time Spent (In Minutes): 45 minutes Discharge Plan Discharge Items Patient Disposition: Home - Self-Care Reason For Visit: CVA Discharge Diagnosis: Acute right thalamic Stroke Activity: Per Instructions section Exercise/Sports: Gradually increase as tolerated Non-emergency contact: Primary Care Provider and Neurologist Call non-emergency contact if: you have any medication questions, your symptoms worsen, your pain is concerning for you and you have a fever Follow-up/Referrals: Sonido Bowles MD [Primary Care Provider] - Diet: Carb Consistent or DM2 and Heart Healthy Addtl Attending Provider Instructions: Follow-up with your primary care physician in 1 week Follow-up with your neurologist Dr. Whittington in 6-8 weeks ----Your ECHO results are pending at the time of discharge. Follow up with your Physician for results. Seek immediate medical attention if your symptoms reoccur or worsen Please take all medications as instructed on discharge list below. Please call if you have any questions or problems. You can reach a [facility] hospitalist on duty at [facility] 24 hours a day by calling [phone] Risk Factors for Stroke: You can reduce your chances of stroke by working with your medical provider to adopt a healthy lifestyle. Some specific ways to lower your chance of stroke are: * If you are a smoker, now is the time to stop smoking cigarettes * If you are diabetic, improve the control of your blood sugars * Avoid excessive amounts of alcohol * Control high blood pressure * Lose weight if you are overweight * Be sure to lead an active lifestyle * Eat a healthy diet low in salt, cholesterol and fat You should know about other risk factors for stroke that you are unable to control. These include: * Age 55 years or older * Male gender * Certain racial groups: , or / * Family History of Stroke, Mini stroke or Heart Attack * Sickle Cell Disease Follow Up: It is important for you to keep your follow up appointments with your medical provider. Who to Call and When: Medical Emergencies: Call 911 immediately if you experience any of the following warning signs and symptoms of Stroke: * Sudden numbness or weakness of the face, arm or leg, especially on one side of the body * Sudden confusion, trouble speaking or understanding * Sudden trouble seeing in one or both eyes * Sudden trouble walking, dizziness, loss of balance or coordination * Sudden severe headache with no cause Do not delay calling 911 if you experience any warning signs or symptoms of a stroke. Delay in seeking medical attention may affect what treatments can be given to you. . Pending Studies at Discharge: Yes Studies:: ECHO Stand-Alone Forms: My [facility] [address], Smoking Cessation Medications and DC Order Prescriptions: Continued citalopram 20 mg tablet 20 mg PO DAILY RF: 0 gabapentin 800 mg tablet 800 mg PO TID RF: 0 ezetimibe 10 mg tablet 10 mg PO HS RF: 0 Lantus Solostar U-100 Insulin 100 unit/mL (3 mL) insulin pen 28 unit SUBCUT HS RF: 0 Ozempic 0.25 mg or 0.5 mg(2 mg/1.5 mL) Pen Injector 0.5 mg SUBCUT FREGOSO@0900 RF: 0 Brilinta 90 mg Tablet 90 mg PO BID Qty: 30 RF: 0 lisinopril 10 mg tablet 10 mg PO HS Qty: 30 RF: 0 rosuvastatin [Crestor] 20 mg Tablet 20 mg PO QAM Qty: 30 RF: 0 aspirin 81 mg Tablet,Delayed Release (Dr/Ec) 81 mg PO QAM Qty: 30 RF: 0 omeprazole 20 mg capsule,delayed release(DR/EC) 20 mg PO DAILY RF: 0 metoprolol succinate 25 mg tablet extended release 24 hr 25 mg PO DAILY RF: 0 Discharge Orders: Discharge Order (Routine); Ordered 06/11/21 Ordered By: Chapo Gibbs Admission Data Admit Date/Time: 06/10/21 18:12 Attending Provider: Chapo Gibbs Admit Provider: Carmela Singleton Primary Care Provider: Sonido Bowles Other Providers: Carmela Singleton ; Calin Warner
== END 2021-06-11 15:27 | disposition home or self-care (01) ==
LOC: ED 12:47 → INTOOBSV 18:12 → 2N 18:12 → SUATTDRO 18:12 → 2N 20:38